=== PATIENT | female | born 1955 | race Caucasian/White ===

== ENCOUNTER → 2018-01-13 10:46 | Outpatient (CLI) | payer BC, SELFPAY ==
--- NOTE | 2018-01-13 10:50 | MM_ITS ---
MM Dig screening mamm BI w/CAD CAD Screening COMPARISON: Analog mammograms 06/06/2007 INDICATION: There is a history of breast cancer in the patient's paternal aunt. TECHNIQUE: Standard CC and MLO images were obtained. R2 CAD reviewed. FINDINGS: Moderate diffuse scattered fiber glandular densities are seen throughout both breast. There are mole markers on each breast. There are a few scattered benign-appearing calcifications right breast. There is a benign-appearing nodular density central portion left breast likely a small cyst or fibroadenoma. However it was not seen on the previous analog mammogram in 2006 and I would recommend a six-month follow-up left mammogram to evaluate for interval stability. There is no suspicious lesion and there are no suspicious microcalcifications. IMPRESSION: Fibrofatty parenchyma with benign-appearing nodular density left breast BI-RADS Category: 2 Benign Finding(s) RECOMMENDED FOLLOW-UP: 6M - 6 MONTH FOLLOW-UP (A letter has been sent to the patient regarding results of the study.)
== END ==
PROVIDERS: Family Provider Internal Medicine Adolescent Medicine; PCP Internal Medicine Adolescent Medicine; Visit Provider Nurse Practitioner Family
DX: Z12.31 Encounter for screening mammogram for malignant neoplasm of breast (principal)
CPT/HCPCS: 77067

== ENCOUNTER → 2019-01-03 09:17 | Outpatient (CLI) | payer BC, SELFPAY ==
[2019-01-03 10:59] LABS: Alanine Aminotransferase 33 U/L (12-78); Albumin Level 3.6 gm/dL (3.4-5.0); Albumin/Globulin Ratio 0.9 (1.1-1.8); Alkaline Phosphatase 83 U/L (46-116); Anion Gap 15.2 mEq/L (5-15); Aspartate Amino Transferase 21 U/L (15-37); Bilirubin,Total 0.5 mg/dL (0.2-1.0); Blood Urea Nitrogen 15 mg/dL (7-18); Calcium 9.3 mg/dL (8.5-10.1); Carbon Dioxide 27 mmol/L (21.0-32.0); Chloride 102 mmol/L (98-107); Chol/HDL Ratio 4.6 (1-3.5); Cholesterol 176 mg/dL (140-200); Creatinine,Serum 0.83 mg/dL (0.55-1.02); Estimated Glomerular Filt Rate 69 ml/min (>60); GFR (African American) 84 ML/MIN (>60); Glucose 222 mg/dL (74-106); HDL Cholesterol 38 mg/dL (29-89); LDL Cholesterol 113 mg/dL (0-130); Potassium 4.2 mmoL/L (3.5-5.1); Sodium 140 mmol/L (136-145); Total Protein,Serum 7.6 gm/dL (6.4-8.2); Triglycerides 126 mg/dL (30-200); VLDL Cholesterol 25 mg/dL (0-40)
== END ==
PROVIDERS: Visit Provider Internal Medicine Adolescent Medicine
DX: E11.9 Type 2 diabetes mellitus without complications (principal); E78.5 Hyperlipidemia, unspecified
CPT/HCPCS: 36415; 80053; 80061; 83036

== ENCOUNTER → 2019-03-18 12:33 | Outpatient (CLI) | payer BC, SELFPAY ==
--- NOTE | 2019-03-18 12:42 | XR_ITS ---
XR hand LT min 3V HISTORY: ITS.REASON: LT HAND LACERATION, INJURY ORDERING PHYSICIAN: Eitan Patel MD PATIENT AGE: 63 years COMPARISON: None FINDINGS: Metallic artifact is present along the mid shaft of the proximal phalanx of the fourth digit consistent with multiple rings. The patient was not able to remove them for the exam. There are severe osteoarthritic changes of the first metacarpal carpal joint with bony eburnation and mild lateral subluxation of the first metacarpal. No acute fracture or dislocation. IMPRESSION: 1. Osteoarthritis of the first metacarpal carpal joint with lateral subluxation of the first metacarpal and common bony eburnation 2. No acute fracture
== END ==
PROVIDERS: PCP Internal Medicine Adolescent Medicine; Visit Provider Internal Medicine Adolescent Medicine
DX: S61.412A Laceration without foreign body of left hand, initial encounter (principal)
CPT/HCPCS: 73130

== ENCOUNTER 2019-04-17 11:19 | Observation (INO) | payer BC, SELFPAY ==
[2019-04-17] VITALS (8 sets, daily range): BP systolic 109–151; BP diastolic 59–84; PULSE 65–86; RESP 13–20; TEMP 36.4–36.8; O2SAT 95–99; BMI 31.5; BMI 30.4
--- NOTE | 2019-04-17 11:35 | CT_ITS ---
CT head/brain wo con HISTORY: Syncope ITS.REASON: syncope ORDERING PHYSICIAN: Paulino Sandy MD PATIENT AGE: 63 years COMPARISON: None TECHNIQUE: Axial images obtained without contrast. Brain and bone windows reviewed. All CT scans at the facility use one or more dose reduction, viz: automated exposure control, ma/kV adjustment per patient size (including targeted exams where dose is matched to indication, i.e. head), or iterative reconstruction technique. FINDINGS: No midline shift, mass effect, intracranial hemorrhage, hydrocephalus, or extra-axial fluid collection is evident. There are mild intralesional changes of age with mild atrophy hypoattenuation periventricular region. The calvarium has an unremarkable appearance. No mastoid effusion. No sinus air-fluid levels.. IMPRESSION: No acute intracranial finding
--- NOTE | 2019-04-17 11:36 | XR_ITS ---
XR hip RT 2-3V w/pelvis HISTORY: Right hip pain following injury ITS.REASON: fall ORDERING PHYSICIAN: Paulino Sandy MD PATIENT AGE: 63 years COMPARISON: None FINDINGS: No fracture or dislocation is evident. Mild osteoarthritic changes are present involving the right hip. IMPRESSION: No acute finding. Mild osteoarthritis
--- NOTE | 2019-04-17 11:37 | XR_ITS ---
XR shoulder RT min 2V HISTORY: Posttraumatic pain ITS.REASON: fall ORDERING PHYSICIAN: Paulino Sandy MD PATIENT AGE: 63 years Comparison: None FINDINGS: No fracture or dislocation. There are mild osteoarthritic changes of the glenohumeral joint and acromioclavicular joint IMPRESSION: Mild osteoarthritis, no acute fracture
--- NOTE | 2019-04-17 11:38 | HMH.EDGENADL ---
ED Disposition Clinical Impression: Sepsis Qualifiers: Sepsis type: sepsis due to unspecified organism Qualified Code(s): A41.9 - Sepsis, unspecified organism Syncope Qualifiers: Syncope type: unspecified Qualified Code(s): R55 - Syncope and collapse Disposition: Admitted as Observation Condition on Discharge: Good Referrals: Eitan Patel MD [Primary Care Provider] - - Critical Care Critical Care Time: No Attestation: On 04/17/19, the high probability of a clinically significant, sudden or life threatening deterioration of the following system(s) required my full and direct attention, intervention and personal management. The time I documented below is in addition to time spent performing reported procedures but includes the following listed in this critical care notation. Medical Decision Making - Medical Records Medical records reviewed: Yes: I reviewed the patient's medical records. - Jhon Inquiry Pt receiving controlled substance: No Vital Signs: 04/17/19 11:37 04/17/19 12:01 04/17/19 15:00 Temperature 97.6 F Temperature Source Oral Pulse Rate [Left Radial] 77 76 86 Respiratory Rate 18 20 Blood Pressure [Right Arm] 119/73 120/70 118/78 Blood Pressure Mean [Right Arm] 88 86 91 Blood Pressure Source [Right Arm] Automatic Cuff Automatic Cuff Automatic Cuff Blood Pressure Position [Right Arm] Sitting Sitting Sitting 02 Sat by Pulse Oximetry 95 98 98 Oxygen Delivery Method Room Air Room Air Room Air - Lab Data Lab results reviewed: Yes: I reviewed the patient's lab results. Lab Results 04/17/19 11:35: WBC 26.9 H*, RBC 4.95, Hgb 14.8, Hct 46.1, MCV 93.1, MCH 29.8, MCHC 32.0, RDW 12.4, Plt Count 428 H, MPV 8.3, Neut % (Auto) 90.6 H, Lymph % (Auto) 4.1 L, [place] % (Auto) 3.9, Eos % (Auto) 1.3, Baso % (Auto) 0.1, Neut # (Auto) 24.2 H, Lymph # (Auto) 1.1, [place] # (Auto) 1.1 H, Eos # (Auto) 0.3, Baso # (Auto) 0.0, Total Counted 100, Neutrophils % (Manual) 85 H, Band Neutrophils % 2.0, Lymphocytes % (Manual) 7 L, Monocytes % (Manual) 6, Platelet Estimate Normal, RBC Morphology Normal 04/17/19 11:35: Sodium 138, Potassium 4.2, Chloride 100, Carbon Dioxide 21, Anion Gap 21.2 H, BUN 23 H, Creatinine 1.29 H, Estimated Creat Clear 69, Estimated GFR 42 L, Est GFR ( Amer) 50 L, Glucose 291 H, Calcium 9.5, Total Bilirubin 0.4, AST 33, ALT 45, Alkaline Phosphatase 88, Troponin I < 0.02, Total Protein 8.1, Albumin 3.6, Globulin 4.5 H, Albumin/Globulin Ratio 0.8 L, Lipase 160 04/17/19 13:10: Urine Color Yellow, Urine Appearance Clear, Urine pH 5.5, Ur Specific [place] >= 1.030, Urine Protein Trace, Urine Glucose (UA) 2+, Urine Ketones 1+, Urine Blood Negative, Urine Nitrate Negative, Urine Bilirubin Negative, Urine Urobilinogen 0.2, Ur Leukocyte Esterase Negative, Urine RBC 3-5, Urine WBC 3-5, Ur Squamous Epith Cells 5-10, Urine Bacteria 1+, Hyaline Casts 20-50, Urine Mucus 1+, Urine Yeast Occasional 04/17/19 13:45: Lactate 2.8 H Result diagrams: 04/17/19 11:35 04/17/19 11:35 Orders (Tests/Meds): ED MEDICATIONS Generic Name Dose Route Start Last Admin Trade Name Freq PRN Reason Stop Dose Admin Piperacillin Sod/Tazobactam 50 mls @ 100 mls/hr 04/17/19 13:15 04/17/19 14:44 Sod 3.375 gm/ Sodium Chloride IV 05/01/19 13:14 100 mls/hr Q8H JEAN Administration Protocol Sodium Chloride 1,000 mls @ 999 mls/hr 04/17/19 15:30 Sod Chlor 0.9% 1000ml Bag IV 04/17/19 16:30 .Q1H1M JEAN Discontinued Medications Generic Name Dose Route Start Last Admin Trade Name Freq PRN Reason Stop Dose Admin Sodium Chloride 1,000 mls @ 999 mls/hr 04/17/19 11:45 04/17/19 11:45 Sod Chlor 0.9% 1000ml Bag IV 04/17/19 12:45 999 mls/hr .Q1H1M JEAN Administration Ondansetron HCl 4 mg 04/17/19 11:37 04/17/19 11:45 Zofran 4mg/2ml Vial IV 04/17/19 11:38 4 mg ONCE ONE Administration ORDERS Category Date Time Status Chest XR AP view [XR chest AP] Stat Exams 04/17/19 15:17 Ordered Tro
--- NOTE | 2019-04-17 11:41 | ED_ITS ---
ED Disposition Clinical Impression: Sepsis Qualifiers: Sepsis type: sepsis due to unspecified organism Qualified Code(s): A41.9 - Sepsis, unspecified organism Syncope Qualifiers: Syncope type: unspecified Qualified Code(s): R55 - Syncope and collapse Disposition: Admitted as Observation Condition on Discharge: Good Referrals: Eitan Patel MD [Primary Care Provider] - - Critical Care Critical Care Time: No Attestation: On 04/17/19, the high probability of a clinically significant, sudden or life threatening deterioration of the following system(s) required my full and direct attention, intervention and personal management. The time I documented below is in addition to time spent performing reported procedures but includes the following listed in this critical care notation. Medical Decision Making - Medical Records Medical records reviewed: Yes: I reviewed the patient's medical records. - Jhon Inquiry Pt receiving controlled substance: No Vital Signs: 04/17/19 11:37 04/17/19 12:01 04/17/19 15:00 Temperature 97.6 F Temperature Source Oral Pulse Rate [Left Radial] 77 76 86 Respiratory Rate 18 20 Blood Pressure [Right Arm] 119/73 120/70 118/78 Blood Pressure Mean [Right Arm] 88 86 91 Blood Pressure Source [Right Arm] Automatic Cuff Automatic Cuff Automatic Cuff Blood Pressure Position [Right Arm] Sitting Sitting Sitting 02 Sat by Pulse Oximetry 95 98 98 Oxygen Delivery Method Room Air Room Air Room Air - Lab Data Lab results reviewed: Yes: I reviewed the patient's lab results. Lab Results 04/17/19 11:35: WBC 26.9 H*, RBC 4.95, Hgb 14.8, Hct 46.1, MCV 93.1, MCH 29.8, MCHC 32.0, RDW 12.4, Plt Count 428 H, MPV 8.3, Neut % (Auto) 90.6 H, Lymph % (Auto) 4.1 L, [place] % (Auto) 3.9, Eos % (Auto) 1.3, Baso % (Auto) 0.1, Neut # (Auto) 24.2 H, Lymph # (Auto) 1.1, [place] # (Auto) 1.1 H, Eos # (Auto) 0.3, Baso # (Auto) 0.0, Total Counted 100, Neutrophils % (Manual) 85 H, Band Neutrophils % 2.0, Lymphocytes % (Manual) 7 L, Monocytes % (Manual) 6, Platelet Estimate Normal, RBC Morphology Normal 04/17/19 11:35: Sodium 138, Potassium 4.2, Chloride 100, Carbon Dioxide 21, Anion Gap 21.2 H, BUN 23 H, Creatinine 1.29 H, Estimated Creat Clear 69, Estimated GFR 42 L, Est GFR ( Amer) 50 L, Glucose 291 H, Calcium 9.5, Total Bilirubin 0.4, AST 33, ALT 45, Alkaline Phosphatase 88, Troponin I < 0.02, Total Protein 8.1, Albumin 3.6, Globulin 4.5 H, Albumin/Globulin Ratio 0.8 L, Lipase 160 04/17/19 13:10: Urine Color Yellow, Urine Appearance Clear, Urine pH 5.5, Ur Specific [place] >= 1.030, Urine Protein Trace, Urine Glucose (UA) 2+, Urine Ketones 1+, Urine Blood Negative, Urine Nitrate Negative, Urine Bilirubin Negative, Urine Urobilinogen 0.2, Ur Leukocyte Esterase Negative, Urine RBC 3-5, Urine WBC 3-5, Ur Squamous Epith Cells 5-10, Urine Bacteria 1+, Hyaline Casts 20-50, Urine Mucus 1+, Urine Yeast Occasional 04/17/19 13:45: Lactate 2.8 H Result diagrams: 04/17/19 11:35 04/17/19 11:35 Orders (Tests/Meds): ED MEDICATIONS Generic Name Dose Route Start Last Admin Trade Name Freq PRN Reason Stop Dose Admin Piperacillin Sod/Tazobactam 50 mls @ 100 mls/hr 04/17/19 13:15 04/17/19 14:44 Sod 3.375 gm/ Sodium Chloride IV 05/01/19 13:14 100 mls/hr Q8H JEAN Administration
--- NOTE | 2019-04-17 11:43 | PC.NURSE ---
Ct scanner not available at this time, MD calvin
[2019-04-17 11:45] LABS: Basophils % 0.1 % (0.1-2.0); Eosinophils # 0.3 K/mm3 (0.0-0.4); Eosinophils % 1.3 % (0.1-12.0); Hematocrit 46.1 % (37.0-47.0); Hemoglobin 14.8 g/dL (12.2-16.2); Lymphocytes # 1.1 K/mm3 (0.7-4.5); Lymphocytes % 4.1 % (10-50); Mean Corpuscular Hemoglobin 29.8 pg (27.0-31.2); Mean Corpuscular Volume 93.1 fl (81-99); Mean Platelet Volume 8.3 fl (7.4-10.4); Monocytes # 1.1 K/mm3 (0.1-1.0); Monocytes % 3.9 % (1.7-9.3); Neutrophils # 24.2 K/mm3 (1.8-7.8); Neutrophils % 90.6 % (37.0-80.0); Platelet Count 428 K/mm3 (142-424); Red Blood Count 4.95 M/mm3 (4.20-5.40); Red Cell Distribution Width 12.4 % (11.5-17.5)
[2019-04-17 11:48] LABS: MANUAL DIFFERENTIAL MANUAL DIFFERENTIAL (MANUAL DIFF)
[2019-04-17 11:51] LABS: White Blood Count 26.9 K/mm3 (4.8-10.8)
[2019-04-17 12:02] LABS: Alanine Aminotransferase 45 U/L (12-78); Albumin Level 3.6 gm/dL (3.4-5.0); Albumin/Globulin Ratio 0.8 (1.1-1.8); Alkaline Phosphatase 88 U/L (46-116); Anion Gap 21.2 mEq/L (5-15); Aspartate Amino Transferase 33 U/L (15-37); Bilirubin,Total 0.4 mg/dL (0.2-1.0); Blood Urea Nitrogen 23 mg/dL (7-18); Calcium 9.5 mg/dL (8.5-10.1); Carbon Dioxide 21 mmol/L (21.0-32.0); Chloride 100 mmol/L (98-107); Creatinine Clearance Estimated 69 mL/min (50-200); Creatinine,Serum 1.29 mg/dL (0.55-1.02); Estimated Glomerular Filt Rate 42 ml/min (>60); GFR (African American) 50 ML/MIN (>60); Globulin 4.5 gm/dl (1.3-3.2); Glucose 291 mg/dL (74-106); Lipase 160 u/L (73-393); Potassium 4.2 mmoL/L (3.5-5.1); Sodium 138 mmol/L (136-145); Total Protein,Serum 8.1 gm/dL (6.4-8.2); Troponin I < 0.02 ng/ml (0.00-0.06)
[2019-04-17 12:15] LABS: Lymphocytes % 7 % (10-50); Monocytes % 6 % (2-9); Neutrophils % 85 % (42-76); Total Cells Counted 100
[2019-04-17 12:16] LABS: Platelet Estimate Normal; RBC Morphology Normal
[2019-04-17 13:15] LABS: Microscopic, Urine URINE MICROSCOPIC (MICROSCOPIC)
--- NOTE | 2019-04-17 13:16 | PC.NURSE ---
Pt to rad
[2019-04-17 13:17] LABS: Appearance,Urine CLEAR (Clear); Blood, Urine Negative (Negative); Color,Urine YELLOW (Yellow); Glucose,Urine (UA) 2+ (Negative); Ketones,Urine 1+ (Negative); Leukocyte Esterase,Urine Negative (Negative); Nitrate,Urine Negative (Negative); PH,Urine 5.5 (5.0-8.5); Protein,Urine TRACE (Negative); Specific Gravity, Urine >= 1.030 (1.005-1.030); Urobilinogen,Urine 0.2 EU/dl (0.2)
[2019-04-17 13:49] LABS: Bilirubin,Urine Negative (Negative)
[2019-04-17 13:50] LABS: Bacteria,Urine 1+ /lpf; Hyaline Casts,Urine 20-50 #/lpf (0)
--- NOTE | 2019-04-17 13:50 | CT_ITS ---
CT abdomen pelvis wo con CLINICAL INDICATION: Vomiting and abdominal pain ITS.REASON: vomiting ORDERING PHYSICIAN: Paulino Sandy MD PATIENT AGE: 63 years COMPARISON: 11/30/2015 TECHNIQUE: Axial images obtained with sagittal and coronal reformats. All CT scans at the facility use one or more dose reduction, viz: automated exposure control, ma/kV adjustment per patient size (including targeted exams where dose is matched to indication, i.e. head), or iterative reconstruction technique. PROCEDURE: Oral Contrast: None IV Contrast: None . FINDINGS: No acute finding in the lung bases. Scattered nodular opacities of both breasts which may be due to fibroglandular elements. Outpatient mammography is suggested. Fatty liver. Prior cholecystectomy. The spleen, pancreas, and adrenal glands are unremarkable. There are some small. Portal lymph nodes contain calcification. There are bilateral renal calculi measuring up to 3 mm in the upper pole on the right and 6 mm in the upper pole on the left. A 4 mm stone is present in the mid polar region on the left. There is mild stranding of perinephric renal fat on both sides.. Prior appendectomy. Diverticulosis of the descending and sigmoid colon no evidence of diverticulitis. No intestinal obstruction or free air. No pelvic mass abnormal fluid collection or focal inflammatory changes pelvis. No acute bony findings. IMPRESSION: No acute abdominal or pelvic findings. Bilateral nonobstructing renal calculi Sigmoid and descending colon diverticulosis with no evidence of diverticulitis
[2019-04-17 13:51] LABS: Mucus,Urine 1+ /lpf; Yeast,Urine Occasional /lpf
[2019-04-17 14:25] LABS: Lactic Acid 2.8 mmol/L (0.4-2.0)
--- NOTE | 2019-04-17 14:31 | PC.NURSE ---
pt return from radiology
--- NOTE | 2019-04-17 14:45 | PC.NURSE ---
pt just got back from CT pt had 2 CT S and lab went to there and got her blood cultures . ATB'S just now started
--- NOTE | 2019-04-17 15:17 | XR_ITS ---
XR chest portable HISTORY: Elevated white blood cell count, septic ITS.REASON: sepsis ORDERING PHYSICIAN: Paulino Sandy MD PATIENT AGE: 63 years COMPARISON: 08/28/2016 FINDINGS: The cardiomediastinal silhouette and pulmonary vascularity are within normal limits. The lungs are clear without infiltrates, suspicious nodules, or pleural effusions. No acute bony abnormalities. IMPRESSION: Negative chest, no acute finding
[2019-04-17 15:18] LABS: Troponin I < 0.02 ng/ml (0.00-0.06)
--- NOTE | 2019-04-17 17:34 | PC.NURSE ---
lab at bedside
[2019-04-17 17:39] LABS: Reflex Lactic Add Lactic Reflex
[2019-04-17 18:01] LABS: Lactic Acid Follow Up (RFLX 1) 1.8 (0.4-2.0)
--- NOTE | 2019-04-17 19:13 | PC.NURSE ---
report given to tala
[2019-04-17 20:21] LABS: POC Glucose,Bedside 250 (70-110)
[2019-04-17 22:04] LABS: Troponin I < 0.02 ng/ml (0.00-0.06)
[2019-04-18] VITALS: BP 115/59; PULSE 70; PULSE 80; RESP 18; TEMP 36.9; O2SAT 99
--- NOTE | 2019-04-18 03:09 | PC.NURSE ---
A&OX4. PT. ABD SOFT, NONTENDER WITH ACTIVE BOWEL SOUNDS IN ALL QUADRANTS. PT. ENCOURAGED TO REPORT ANY BM IN ORDER TO OBTAIN STOOL SAMPLE; PT. HAS NOT HAD A BM THUS FAR. PT. HAS NOT C/O PAIN, N/V/D, SOB, OR DIZZINESS. PT. AMBULATES INDEPENDENTLY WITH STANDBY ASSIST; GAIT AND BALANCE SATISFACTORY. NEW IV PLACED IN RFA; LAC IV D/C. IV PATENT AND INFUSING SHOWING NO S/S OF INFILTRATION. PT. CURRENTLY RESTING IN BED WITH EYES CLOSED. VSS. WILL CONTINUE TO MONITOR.
[2019-04-18 03:43] LABS: Basophils % 0.2 % (0.1-2.0); Eosinophils # 0.1 K/mm3 (0.0-0.4); Eosinophils % 0.6 % (0.1-12.0); Hematocrit 36.3 % (37.0-47.0); Lymphocytes # 2.7 K/mm3 (0.7-4.5); Mean Corpuscular HGB Conc 32.9 g/dL (31.8-35.4); Mean Corpuscular Hemoglobin 29.8 pg (27.0-31.2); Mean Corpuscular Volume 90.7 fl (81-99); Mean Platelet Volume 8.3 fl (7.4-10.4); Monocytes # 0.7 K/mm3 (0.1-1.0); Monocytes % 4.8 % (1.7-9.3); Neutrophils # 10.2 K/mm3 (1.8-7.8); Neutrophils % 74.4 % (37.0-80.0); Platelet Count 297 K/mm3 (142-424); Red Blood Count 4.01 M/mm3 (4.20-5.40); Red Cell Distribution Width 12.6 % (11.5-17.5); White Blood Count 13.6 K/mm3 (4.8-10.8)
[2019-04-18 03:58] LABS: Blood Urea Nitrogen 18 mg/dL (7-18); Carbon Dioxide 26 mmol/L (21.0-32.0); Chloride 106 mmol/L (98-107); Creatinine Clearance Estimated 86 mL/min (50-200); Creatinine,Serum 0.89 mg/dL (0.55-1.02); Estimated Glomerular Filt Rate 64 ml/min (>60); GFR (African American) 77 ML/MIN (>60); Sodium 139 mmol/L (136-145); Troponin I < 0.02 ng/ml (0.00-0.06)
[2019-04-18 03:59] LABS: Calcium 8.5 mg/dL (8.5-10.1); Glucose 183 mg/dL (74-106)
[2019-04-18 04:00] VITALS: BP 133/53; PULSE 60; PULSE 63; RESP 18; TEMP 36.6; O2SAT 98
[2019-04-18 04:00] LABS: Hemoglobin 11.9 g/dL (12.2-16.2)
[2019-04-18 05:23] VITALS: BMI 29.9
[2019-04-18 05:58] LABS: POC Glucose,Bedside 161 (70-110)
--- NOTE | 2019-04-18 07:18 | HMH.HPDC ---
General - General Admission date:: 04/17/19 Discharge date: 04/18/19 *Admission Date: 04/17/19 *Chief complaint: Syncope/leukocytosis *History of present illness: 63-year-old white female with well-controlled type 2 diabetes who was at her home yesterday morning and while fixing breakfast began to have the onset of significant watery diarrhea several times. She went back to the kitchen and had a syncopal episode. She called a friend who summoned EMS and brought her to the emergency department where she was found to have essentially normal exam but noted to have mild urinary tract infection and significant leukocytosis. Admitted to hospital for IV antibiotics, cultures and further diagnostic testing. [facility] History I have reviewed the patient's past medical history: Yes Medical History: Reports:: Diabetes Mellitus Type 2 Denies:: Cancer, Diabetes Mellitus Type 1, MRSA *Have you ever received a pneumonia vaccine?: Yes *Have you received a flu vaccine this season?: Yes Laterality Cases: Bilateral: Arthroscopy Knee Other Surgeries: Yes: Appendectomy, Cholecystectomy, , Hernia Repair Amputation: No Fractures: No - *Social History Educational Level: Completed College Smoking Status: Never smoker Alcohol Intake: never *Occupational Status:: retired Housing: house *Travel in the last 8 weeks: None - Psychiatric History Expresses thoughts of harming self/others: None Suicide Plan Description: No Plan Family Hx:: Heart Attack, Hypertension Review of Systems - Constitutional Reports fatigue, Reports fever(s), Denies anorexia, Denies body ache(s) - Eyes Denies blind spots, Denies blurry vision - ENT Denies abnormal hearing - *Cardiovascular Denies chest pain, Denies chest pain at rest, Denies excessive sweating, Denies shortness of breath - *Respiratory Denies change in phlegm color, Denies chest congestion - *Gastrointestinal Reports abdominal pain, Reports change in bowel habits - *Genitourinary Denies abnormal periods, Denies abnormal vaginal bleeding - Integumentary/Breasts Denies acne - *Neurologic Reports dizziness, Denies abnormal speech Exam Vital signs and Labs for Last 24 Hours: Temp Pulse Resp BP Pulse Ox 97.8 F 63 18 133/53 L 98 04/18/19 04:00 04/18/19 04:00 04/18/19 04:00 04/18/19 04:00 04/18/19 04:00 Laboratory Results - last 24 hr 04/17/19 11:35: WBC 26.9 H*, RBC 4.95, Hgb 14.8, Hct 46.1, MCV 93.1, MCH 29.8, MCHC 32.0, RDW 12.4, Plt Count 428 H, MPV 8.3, Neut % (Auto) 90.6 H, Lymph % (Auto) 4.1 L, [place] % (Auto) 3.9, Eos % (Auto) 1.3, Baso % (Auto) 0.1, Neut # (Auto) 24.2 H, Lymph # (Auto) 1.1, [place] # (Auto) 1.1 H, Eos # (Auto) 0.3, Baso # (Auto) 0.0, Total Counted 100, Neutrophils % (Manual) 85 H, Band Neutrophils % 2.0, Lymphocytes % (Manual) 7 L, Monocytes % (Manual) 6, Platelet Estimate Normal, RBC Morphology Normal 04/17/19 11:35: Sodium 138, Potassium 4.2, Chloride 100, Carbon Dioxide 21, Anion Gap 21.2 H, BUN 23 H, Creatinine 1.29 H, Estimated Creat Clear 69, Estimated GFR 42 L, Est GFR ( Amer) 50 L, Glucose 291 H, Calcium 9.5, Total Bilirubin 0.4, AST 33, ALT 45, Alkaline Phosphatase 88, Troponin I < 0.02, Total Protein 8.1, Albumin 3.6, Globulin 4.5 H, Albumin/Globulin Ratio 0.8 L, Lipase 160 04/17/19 13:10: Urine Color Yellow, Urine Appearance Clear, Urine pH 5.5, Ur Specific [place] >= 1.030, Urine Protein Trace, Urine Glucose (UA) 2+, Urine Ketones 1+, Urine Blood Negative, Urine Nitrate Negative, Urine Bilirubin Negative, Urine Urobilinogen 0.2, Ur Leukocyte Esterase Negative, Urine RBC 3-5, Urine WBC 3-5, Ur Squamous Epith Cells 5-10, Urine Bacteria 1+, Hyaline Casts 20-50, Urine Mucus 1+, Urine Yeast Occasional 04/17/19 13:45: Lactate 2.8 H 04/17/19 14:43: Troponin I < 0.02 04/17/19 17:30: Lactate 1.8 04/17/19 20:13: POC Glucose 250 H 04/17/19 21:38: Troponin I < 0.02 04/18/19 03:35: Sodium 139, Potassium 4.0, Chloride 106, Carbon Dioxide 26 D, Anion Gap
--- NOTE | 2019-04-18 07:22 | P.HPDS_ITS ---
General - General Admission date:: 04/17/19 Discharge date: 04/18/19 *Admission Date: 04/17/19 *Chief complaint: Syncope/leukocytosis *History of present illness: 63-year-old white female with well-controlled type 2 diabetes who was at her home yesterday morning and while fixing breakfast began to have the onset of significant watery diarrhea several times. She went back to the kitchen and had a syncopal episode. She called a friend who summoned EMS and brought her to the emergency department where she was found to have essentially normal exam but noted to have mild urinary tract infection and significant leukocytosis. Admitted to hospital for IV antibiotics, cultures and further diagnostic testing. [facility] History I have reviewed the patient's past medical history: Yes Medical History: Reports:: Diabetes Mellitus Type 2 Denies:: Cancer, Diabetes Mellitus Type 1, MRSA *Have you ever received a pneumonia vaccine?: Yes *Have you received a flu vaccine this season?: Yes Laterality Cases: Bilateral: Arthroscopy Knee Other Surgeries: Yes: Appendectomy, Cholecystectomy, , Hernia Repair Amputation: No Fractures: No - *Social History Educational Level: Completed College Smoking Status: Never smoker Alcohol Intake: never *Occupational Status:: retired Housing: house *Travel in the last 8 weeks: None - Psychiatric History Expresses thoughts of harming self/others: None Suicide Plan Description: No Plan Family Hx:: Heart Attack, Hypertension Review of Systems - Constitutional Reports fatigue, Reports fever(s), Denies anorexia, Denies body ache(s) - Eyes Denies blind spots, Denies blurry vision - ENT Denies abnormal hearing - *Cardiovascular Denies chest pain, Denies chest pain at rest, Denies excessive sweating, Denies shortness of breath - *Respiratory Denies change in phlegm color, Denies chest congestion - *Gastrointestinal Reports abdominal pain, Reports change in bowel habits - *Genitourinary Denies abnormal periods, Denies abnormal vaginal bleeding - Integumentary/Breasts Denies acne - *Neurologic Reports dizziness, Denies abnormal speech Exam Vital signs and Labs for Last 24 Hours: Temp Pulse Resp BP Pulse Ox 97.8 F 63 18 133/53 L 98 04/18/19 04:00 04/18/19 04:00 04/18/19 04:00 04/18/19 04:00 04/18/19 04:00 Laboratory Results - last 24 hr 04/17/19 11:35: WBC 26.9 H*, RBC 4.95, Hgb 14.8, Hct 46.1, MCV 93.1, MCH 29.8, MCHC 32.0, RDW 12.4, Plt Count 428 H, MPV 8.3, Neut % (Auto) 90.6 H, Lymph % (Auto) 4.1 L, [place] % (Auto) 3.9, Eos % (Auto) 1.3, Baso % (Auto) 0.1, Neut # (Auto) 24.2 H, Lymph # (Auto) 1.1, [place] # (Auto) 1.1 H, Eos # (Auto) 0.3, Baso # (Auto) 0.0, Total Counted 100, Neutrophils % (Manual) 85 H, Band Neutrophils % 2.0, Lymphocytes % (Manual) 7 L, Monocytes % (Manual) 6, Platelet Estimate Normal, RBC Morphology Normal 04/17/19 11:35: Sodium 138, Potassium 4.2, Chloride 100, Carbon Dioxide 21, Anion Gap 21.2 H, BUN 23 H, Creatinine 1.29 H, Estimated Creat Clear 69, Estimated GFR 42 L, Est GFR ( Amer) 50 L, Glucose 291 H, Calcium 9.5, Total Bilirubin 0.4, AST 33, ALT 45, Alkaline Phosphatase 88, Troponin I < 0.02, Total Protein 8.1, Albumin 3.6, Globulin 4.5 H, Albumin/Globulin Ratio 0.8 L, Lipase 160 04/17/19 13:10: Urine Color Yellow, Urine Appearance Clear, Urine pH 5.5, Ur Specific [place] >= 1.030, Urine Protein Trace, Urine Glucose (UA) 2+, Urine Ketones 1+, Urine Blood Negative, Ur
[2019-04-18 07:43] VITALS: BP 155/95; PULSE 70; RESP 16; TEMP 36.5; O2SAT 96
--- NOTE | 2019-04-18 09:05 | HMH.PHAVTE ---
[facility] Pharmacy VTE Monitoring - Patient Demographics Admission date: 04/17/19 Report Date: 04/18/19 Time: 09:05 Allergies/Adverse Reactions: Patient Allergies No Known Drug Allergies [NO KNOWN DRUG ALLERGIES] Allergy (Unknown, Verified 03/25/19 09:21) Height: 1.78 m Weight: 94.489 kg Patient Problems: Current Active Problems (Updated 04/18/19 @ 07:22 by Eitan Patel MD) Sepsis (Acute) Syncope (Acute) Leukocytosis (Acute) UTI (urinary tract infection) (Acute) - VTE Risk Labs: VTE Related Lab Results Hgb 11.9 g/dL (12.2-16.2) L D 04/18/19 03:35 Hct 36.3 % (37.0-47.0) L 04/18/19 03:35 Plt Count 297 K/mm3 (142-424) D 04/18/19 03:35 BUN 18 mg/dL (7-18) 04/18/19 03:35 Creatinine 0.89 mg/dL (0.55-1.02) D 04/18/19 03:35 Estimated Creat Clear 86 mL/min (50-200) 04/18/19 03:35 VTE Score: 2 - Prophylaxis VTE Prophylaxis Ordered?: Yes Types of VTE Prophylaxis: TEDS Knee High Location of Applied Device: Bilateral Lower Extremeties
== END 2019-04-18 09:35 | disposition home or self-care (01) ==
LOC: ER 15:26 → 2ND 17:16
PROVIDERS: Admitting Provider Internal Medicine Adolescent Medicine; Emergency Provider Emergency Medicine Emergency Medical Services; PCP Internal Medicine Adolescent Medicine; Visit Provider Internal Medicine Adolescent Medicine
DX: D72.829 Elevated white blood cell count, unspecified (principal); N39.0 Urinary tract infection, site not specified; R55 Syncope and collapse; E11.9 Type 2 diabetes mellitus without complications
CPT/HCPCS: 36415; 70450; 71045; 73030; 73502; 74176; 80048; 80053; 81001; 82962; 83605; 83690; 84484; 85007; 85025; 87040; 87086; 93005; 96365; 96366; 96367; 96375; 99285; G0378; J2405; J2543

== ENCOUNTER → 2019-04-20 16:43 | Outpatient (CLI) | payer BC, SELFPAY ==
[2019-04-20 18:10] LABS: Hemoglobin A1C 8.3 % (0.0-7.0)
[2019-04-20 20:11] LABS: Alanine Aminotransferase 36 U/L (12-78); Albumin Level 3.4 gm/dL (3.4-5.0); Albumin/Globulin Ratio 0.9 (1.1-1.8); Alkaline Phosphatase 77 U/L (46-116); Anion Gap 15.4 mEq/L (5-15); Aspartate Amino Transferase 18 U/L (15-37); Bilirubin,Total 0.2 mg/dL (0.2-1.0); Blood Urea Nitrogen 14 mg/dL (7-18); Carbon Dioxide 27 mmol/L (21.0-32.0); Chloride 104 mmol/L (98-107); Chol/HDL Ratio 4.5 (1-3.5); Cholesterol 154 mg/dL (140-200); Creatinine,Serum 1.06 mg/dL (0.55-1.02); Estimated Glomerular Filt Rate 52 ml/min (>60); GFR (African American) 63 ML/MIN (>60); Globulin 3.8 gm/dl (1.3-3.2); Glucose 218 mg/dL (74-106); HDL Cholesterol 34 mg/dL (29-89); LDL Cholesterol 92 mg/dL (0-130); Potassium 4.4 mmoL/L (3.5-5.1); Sodium 142 mmol/L (136-145); Total Protein,Serum 7.2 gm/dL (6.4-8.2); Triglycerides 139 mg/dL (30-200); VLDL Cholesterol 28 mg/dL (0-40)
[2019-04-20 20:21] LABS: Calcium 9.4 mg/dL (8.5-10.1)
== END ==
PROVIDERS: Visit Provider Internal Medicine Adolescent Medicine
DX: E11.9 Type 2 diabetes mellitus without complications (principal); Z79.84 Long term (current) use of oral hypoglycemic drugs; E78.5 Hyperlipidemia, unspecified
CPT/HCPCS: 36415; 80053; 80061; 83036

== ENCOUNTER → 2019-06-26 09:31 | Outpatient (CLI) | payer MEDICARE, BC, SELFPAY ==
[2019-06-26 11:07] LABS: Alanine Aminotransferase 29 U/L (12-78); Albumin Level 3.4 gm/dL (3.4-5.0); Albumin/Globulin Ratio 0.9 (1.1-1.8); Alkaline Phosphatase 68 U/L (46-116); Anion Gap 17.7 mEq/L (5-15); Aspartate Amino Transferase 14 U/L (15-37); Bilirubin,Total 0.3 mg/dL (0.2-1.0); Blood Urea Nitrogen 12 mg/dL (7-18); Calcium 9.3 mg/dL (8.5-10.1); Carbon Dioxide 24 mmol/L (21.0-32.0); Chloride 104 mmol/L (98-107); Creatinine,Serum 0.83 mg/dL (0.55-1.02); Estimated Glomerular Filt Rate 69 ml/min (>60); GFR (African American) 84 ML/MIN (>60); Globulin 3.7 gm/dl (1.3-3.2); Glucose 171 mg/dL (74-106); Hemoglobin A1C 7.1 % (0.0-7.0); Potassium 3.7 mmoL/L (3.5-5.1); Sodium 142 mmol/L (136-145); Total Protein,Serum 7.1 gm/dL (6.4-8.2)
== END ==
PROVIDERS: Visit Provider Internal Medicine Adolescent Medicine
DX: E11.9 Type 2 diabetes mellitus without complications (principal); Z79.4 Long term (current) use of insulin
CPT/HCPCS: 36415; 80053; 83036

== ENCOUNTER → 2019-07-03 09:07 | Outpatient (CLI) | payer MEDICARE, BC, SELFPAY ==
--- NOTE | 2019-07-03 09:11 | XR_ITS ---
PROCEDURE: XR DEXA AXIAL SKELETON CLINICAL INDICATION: MENOPAUSAL SCREENING COMPARISON: No exams were available for comparison FINDINGS: The L1-L4 density has a T-score of -1.2 consistent with osteopenia. The lowest density within the hips is in the right femoral neck at 0.706 grams/centimeters sq with a T-score of -2.4. IMPRESSION: This patient is considered osteopenic according to the World Health Organization criteria. Bone density is between 10 and 25 percent below young normal . Fracture risk is moderate. Treatment is advised. Based on these results of follow-up exam is recommended in 2 years Dictated by: Juan Carlos Caballero MD 07/03/2019 10:42 Signed by: <Electronically signed by Juan Carlos Caballero MD in [place]> 07/03/2019 10:42
== END ==
PROVIDERS: PCP Internal Medicine Adolescent Medicine; Visit Provider Internal Medicine Adolescent Medicine
DX: Z13.820 Encounter for screening for osteoporosis (principal); Z78.0 Asymptomatic menopausal state
CPT/HCPCS: 77080

== ENCOUNTER → 2019-10-29 09:47 | Outpatient (CLI) | payer MEDICARE, BC, SELFPAY ==
[2019-10-29 10:12] LABS: Basophils % 0.3 % (0.1-2.0); Eosinophils # 0.1 K/mm3 (0.0-0.4); Eosinophils % 0.7 % (0.1-12.0); Hematocrit 47.1 % (37.0-47.0); Hemoglobin 14.3 g/dL (12.2-16.2); Lymphocytes # 2.2 K/mm3 (0.7-4.5); Lymphocytes % 23.9 % (10-50); Mean Corpuscular HGB Conc 30.5 g/dL (31.8-35.4); Mean Corpuscular Hemoglobin 29.8 pg (27.0-31.2); Mean Corpuscular Volume 97.9 fl (81-99); Mean Platelet Volume 8.2 fl (7.4-10.4); Monocytes # 0.3 K/mm3 (0.1-1.0); Monocytes % 3.7 % (1.7-9.3); Neutrophils # 6.6 K/mm3 (1.8-7.8); Neutrophils % 71.3 % (37.0-80.0); Platelet Count 362 K/mm3 (142-424); Red Blood Count 4.81 M/mm3 (4.20-5.40); Red Cell Distribution Width 12.7 % (11.5-17.5); White Blood Count 9.3 K/mm3 (4.8-10.8)
[2019-10-29 10:45] LABS: Hemoglobin A1C 7.5 % (0.0-7.0)
[2019-10-29 11:30] LABS: Alanine Aminotransferase 27 U/L (12-78); Albumin Level 3.5 gm/dL (3.4-5.0); Albumin/Globulin Ratio 0.9 (1.1-1.8); Alkaline Phosphatase 93 U/L (46-116); Anion Gap 14.9 mEq/L (5-15); Aspartate Amino Transferase 14 U/L (15-37); Bilirubin,Total 0.5 mg/dL (0.2-1.0); Blood Urea Nitrogen 13 mg/dL (7-18); Calcium 9.3 mg/dL (8.5-10.1); Carbon Dioxide 26 mmol/L (21.0-32.0); Chloride 103 mmol/L (98-107); Chol/HDL Ratio 4.7 (1-3.5); Cholesterol 174 mg/dL (140-200); Estimated Glomerular Filt Rate 63 ml/min (>60); GFR (African American) 76 ML/MIN (>60); Glucose 196 mg/dL (74-106); HDL Cholesterol 37 mg/dL (29-89); LDL Cholesterol 116 mg/dL (0-130); Potassium 3.9 mmoL/L (3.5-5.1); Sodium 140 mmol/L (136-145); Total Protein,Serum 7.5 gm/dL (6.4-8.2); Triglycerides 106 mg/dL (30-200); VLDL Cholesterol 21 mg/dL (0-40)
== END ==
PROVIDERS: Visit Provider Internal Medicine Adolescent Medicine
DX: E11.9 Type 2 diabetes mellitus without complications (principal); Z79.84 Long term (current) use of oral hypoglycemic drugs
CPT/HCPCS: 36415; 80053; 80061; 83036; 85025

== ENCOUNTER → 2019-12-18 10:07 | Outpatient (CLI) | payer MEDICARE, BC, SELFPAY ==
[2019-12-18 10:29] LABS: Basophils # 0.1 K/mm3 (0-0.2); Basophils % 0.4 % (0.1-2.0); Eosinophils # 0.1 K/mm3 (0.0-0.4); Eosinophils % 0.8 % (0.1-12.0); Lymphocytes # 1.7 K/mm3 (0.7-4.5); Lymphocytes % 10.9 % (10-50); Mean Corpuscular HGB Conc 30.4 g/dL (31.8-35.4); Mean Corpuscular Hemoglobin 29.3 pg (27.0-31.2); Mean Corpuscular Volume 96.7 fl (81-99); Mean Platelet Volume 8.5 fl (7.4-10.4); Monocytes # 0.6 K/mm3 (0.1-1.0); Monocytes % 3.5 % (1.7-9.3); Neutrophils # 13.1 K/mm3 (1.8-7.8); Neutrophils % 84.4 % (37.0-80.0); Platelet Count 362 K/mm3 (142-424); Red Blood Count 4.76 M/mm3 (4.20-5.40); Red Cell Distribution Width 12.9 % (11.5-17.5); White Blood Count 15.6 K/mm3 (4.8-10.8)
[2019-12-18 10:31] LABS: MANUAL DIFFERENTIAL MANUAL DIFFERENTIAL (MANUAL DIFF)
[2019-12-18 11:23] LABS: Lymphocytes % 16 % (10-50); Monocytes % 8 % (2-9); Neutrophils % 76 % (42-76); Platelet Estimate Normal; RBC Morphology Normal; Total Cells Counted 100
[2019-12-18 11:38] LABS: Alanine Aminotransferase 27 U/L (12-78); Albumin Level 3.5 gm/dL (3.4-5.0); Albumin/Globulin Ratio 0.9 (1.1-1.8); Alkaline Phosphatase 97 U/L (46-116); Anion Gap 14.4 mEq/L (5-15); Aspartate Amino Transferase 19 U/L (15-37); Bilirubin,Total 0.6 mg/dL (0.2-1.0); Blood Urea Nitrogen 12 mg/dL (7-18); Calcium 9.3 mg/dL (8.5-10.1); Carbon Dioxide 28 mmol/L (21.0-32.0); Chloride 103 mmol/L (98-107); Creatinine,Serum 0.93 mg/dL (0.55-1.02); Estimated Glomerular Filt Rate 61 ml/min (>60); GFR (African American) 73 ML/MIN (>60); Globulin 3.7 gm/dl (1.3-3.2); Glucose 233 mg/dL (74-106); Potassium 3.4 mmoL/L (3.5-5.1); Sodium 142 mmol/L (136-145); Total Protein,Serum 7.2 gm/dL (6.4-8.2)
[2019-12-18 11:49] LABS: Erythrocyte Sedimentation Rate 9 mm/hr (0-30)
== END ==
PROVIDERS: Visit Provider Internal Medicine Adolescent Medicine
DX: G43.109 Migraine with aura, not intractable, without status migrainosus (principal)
CPT/HCPCS: 36415; 80053; 85007; 85025; 85651

== ENCOUNTER 2019-12-22 07:46 | Outpatient (RCR) | payer MEDICARE, BC, SELFPAY | END 2019-12-22 07:55 | disposition home or self-care (01) | LOC: PT 07:46 | PROVIDERS: PCP Internal Medicine Adolescent Medicine; Visit Provider Internal Medicine Adolescent Medicine | DX: M54.41 Lumbago with sciatica, right side (principal) | CPT/HCPCS: 97110; 97163 ==

== ENCOUNTER → 2019-12-22 09:46 | Outpatient (CLI) | payer MEDICARE, BC, SELFPAY ==
--- NOTE | 2019-12-22 09:48 | MR_ITS ---
PROCEDURE: MR HEAD/BRAIN WO CON CLINICAL INDICATION: MIGRAINE AURA WITHOUT HEADACHE COMPARISON: No exams were available for comparison TECHNIQUE: Routine multiplanar multi echo sequences are performed without gadolinium enhancement. FINDINGS: No midline shift, mass effect, intracranial hemorrhage, hydrocephalus, or acute infarction is evident. There are numerous periventricular and subcortical T2 white matter hyperintensities. The hippocampal gyri are unremarkable in the temporal horns are symmetric. The cerebellopontine angle, cerebellum, and brainstem are unremarkable. The pituitary, optic chiasm, corpus callosum, and craniocervical junction have an unremarkable appearance. No mastoid effusion or sinus air-fluid level. IMPRESSION: 1. No acute intracranial findings. 2. Numerous scattered periventricular and subcortical T2 white matter hyperintensities. Differential diagnosis would include ischemic gliotic foci from microvascular disease or migraine headache. Demyelinating process felt to be less likely based on imaging characteristics but not completely excluded. Dictated by: Juan Carlos Caballero MD 12/23/2019 13:35 Electronically signed by Juan Carlos Caballero MD in [place] 12/23/2019 13:35
== END ==
PROVIDERS: PCP Internal Medicine Adolescent Medicine; Visit Provider Internal Medicine Adolescent Medicine
DX: G43.109 Migraine with aura, not intractable, without status migrainosus (principal)
CPT/HCPCS: 70551

== ENCOUNTER → 2020-07-26 10:28 | Outpatient (CLI) | payer MEDICARE, BC, SELFPAY ==
[2020-07-26 11:58] LABS: Chloride 105 mmol/L (98-107)
[2020-07-26 11:59] LABS: Potassium 4.2 mmoL/L (3.5-5.1); Sodium 141 mmol/L (136-145)
[2020-07-26 12:01] LABS: Alanine Aminotransferase 17 U/L (12-78); Albumin Level 3.9 g/dl (3.5-5.0); Albumin/Globulin Ratio 1.2 (1.1-1.8); Alkaline Phosphatase 85 U/L (38-126); Anion Gap 14.2 mEq/L (5-15); Aspartate Amino Transferase 21 U/L (14-36); Bilirubin,Total 0.4 mg/dl (0.2-1.3); Blood Urea Nitrogen 16 mg/dl (7-17); Carbon Dioxide 26 mmol/L (22.0-30.0); Estimated Glomerular Filt Rate 84 ml/min (>60); GFR (African American) 101 ML/MIN (>60); Globulin 3.2 g/dL (1.3-3.2); Total Protein,Serum 7.1 g/dl (6.3-8.2)
[2020-07-26 12:02] LABS: Calcium 9.8 mg/dl (8.4-10.2); Chol/HDL Ratio 2.2 (1-3.5); Cholesterol 98 mg/dl (140-200); Glucose 203 mg/dl (74-100); HDL Cholesterol 45 mg/dl (40-60); Triglycerides 85 mg/dl (30-150); VLDL Cholesterol 17 mg/dL (0-40)
[2020-07-26 12:13] LABS: Direct LDL Cholesterol 43.17 mg/dL (100-129)
[2020-07-27 14:22] LABS: Hemoglobin A1C 8.9 % (4.0-6.0)
[2020-07-27 14:46] LABS: Thyroid Stimulating Hormone 0.92 uIU/mL (0.465-4.68)
[2020-07-27 15:05] LABS: Vitamin B12 230 pg/mL (239-931)
[2020-07-27 15:23] LABS: 25-OH Vitamin D, Total 34.1 ng/mL (30-100)
== END ==
PROVIDERS: Visit Provider Internal Medicine Adolescent Medicine
DX: E11.9 Type 2 diabetes mellitus without complications (principal); E78.5 Hyperlipidemia, unspecified; G60.9 Hereditary and idiopathic neuropathy, unspecified; E55.9 Vitamin D deficiency, unspecified; Z79.84 Long term (current) use of oral hypoglycemic drugs
CPT/HCPCS: 36415; 80053; 80061; 82306; 82607; 83036; 84443

== ENCOUNTER 2020-11-26 08:58 | Emergency (ER) | payer MEDICARE, BC, SELFPAY ==
[2020-11-26 09:10] VITALS: BP 139/81; PULSE 87; RESP 18; TEMP 36.9; O2SAT 98; BMI 29.9
--- NOTE | 2020-11-26 09:32 | HMH.EDUTC ---
[facility] [place] Clinical Impression: Otitis Qualifiers: Laterality: right Qualified Code(s): H66.91 - Otitis media, unspecified, right ear Disposition: Home, Self-Care Condition on Discharge: Good Instructions: Ear Infections (Alternative Therapy), Middle Ear Infections (Alternative Therapy), Amoxicillin Additional Instructions: Take medication as prescribed *FOllow up with Family Doctor if no improvement or any worsening of symptoms Return if needed Straight to ER if any life threatening symptoms Prescriptions: Amoxicillin [Amoxicillin 500mg Cap] 500 mg PO TID #30 cap Transmission Status: Pending to Clinic Pharmacy [facility] Referrals: Eitan Patel MD [Primary Care Provider] - As needed Time of Disposition: 09:37 Medical Decision Making - Jhon Inquiry Pt receiving controlled substance: No Jhon was queried for this patient: No Vital Signs: 11/26/20 09:10 Temperature 98.4 F Temperature Source Oral Pulse Rate [Right Brachial] 87 Respiratory Rate 18 Blood Pressure [Right Arm] 139/81 Blood Pressure Mean [Right Arm] 100 Blood Pressure Source [Right Arm] Automatic Cuff Blood Pressure Position [Right Arm] Sitting 02 Sat by Pulse Oximetry 98 Oxygen Delivery Method Room Air [facility] [place] HPI - General Stated complaint: R ear ache Time Seen by Provider: 11/26/20 09:32 Mode of Arrival: Ambulatory Source of Information: Patient Limitations: No Limitations Description of Symptoms (Recalled from Triage Doc. by RN): PATIENT C/O RIGHT EARACHE X 4-5 DAYS HEENT Symptoms (Recalled from RN notes): Yes Resp Symptoms (Recalled from RN notes): No Skin Symptoms (Recalled from RN notes): No MS Symptoms (Recalled from RN notes): No Functional Status (Recalled from RN notes): WNL - History of Present Illness Provider Complaint: Patient states that she has been having pain in her right ear for about 4-5 days that has continued to get worse State that today she woke up and her ear was still hurting so she came in to get it checked - Related Data Home Medications Medication Instructions Recorded Confirmed Atorvastatin Calcium [Lipitor 40mg 40 mg PO HS 11/26/20 11/26/20 Tab] Glimepiride [Amaryl 2mg tablet] 2 mg PO DAILY 11/26/20 11/26/20 Metformin HCl [Metformin 1000mg 1,000 mg PO BID 11/26/20 11/26/20 Tablets] Verapamil HCl [Verapamil ER] 240 mg PO DAILY 11/26/20 11/26/20 trandolapriL [Trandolapril] 4 mg PO DAILY 11/26/20 11/26/20 Previous Rx's Medication Instructions Recorded Amoxicillin [Amoxicillin 500mg 500 mg PO TID #30 cap 11/26/20 Cap] Allergies Allergy/AdvReac Type Severity Reaction Status Date / Time No Known Allergies Allergy Verified 11/26/20 09:27 - Worker's Comp Is this a Worker's Comp case?: No [facility] [place] History - Hepatitis A Screen Drug use history?: No High risk sexual behaviors?: No History of sexually transmitted infection?: No Currently employed?: No Childcare worker?: No Do you have indoor plumbing?: Yes Do you have electricity?: Yes Attestation statement:: This patient has been screened for Hepatitis A risk factors. I have reviewed the patient's past medical history: Yes Medical History: Reports:: Diabetes Mellitus Type 2 Denies:: Cancer, Diabetes Mellitus Type 1, MRSA Laterality Cases: Bilateral: Arthroscopy Knee, Carpal Tunnel Release Other Surgeries: Yes: Appendectomy, Cholecystectomy, , Hernia Repair Amputation: No Fractures: No - Social History Smoking Status: Never smoker Alcohol Intake: never Occupational Status: other Housing: house Family Hx:: Heart Attack, Hypertension ROS Obtained: Yes All systems reviewed & no additional complaints, Yes Systems reviewed as appropriate & no additional complaints - Constitutional Constitutional: Reports system reviewed and no additional complaints, except as docu - ENT Ears, Nose, Mouth, and Throat: Reports system reviewed and no additional complaints, except as docu, Reports otalgia Phys
[2020-11-26 09:43] VITALS: BP 139/81; PULSE 87; RESP 18; TEMP 36.9; O2SAT 98
== END 2020-11-26 09:45 | disposition home or self-care (01) ==
PROVIDERS: Emergency Provider Nurse Practitioner; PCP Internal Medicine Adolescent Medicine
DX: H66.91 Otitis media, unspecified, right ear (principal); E11.9 Type 2 diabetes mellitus without complications; Z79.84 Long term (current) use of oral hypoglycemic drugs
CPT/HCPCS: G0463; 99202

== ENCOUNTER → 2021-03-10 10:05 | Outpatient (CLI) | payer MEDICARE, BC, SELFPAY ==
[2021-03-10 11:29] LABS: Coronavirus 19 IgG Antibody Positive (Negative); Coronavirus 19 IgM Antibody Negative (Negative)
== END ==
PROVIDERS: Visit Provider Internal Medicine Gastroenterology
DX: Z01.812 Encounter for preprocedural laboratory examination (principal); Z20.822 Contact with and (suspected) exposure to COVID-19; Z12.11 Encounter for screening for malignant neoplasm of colon
CPT/HCPCS: 36415; 86328

== ENCOUNTER 2021-03-13 07:16 | Day surgery (SDC) | payer MEDICARE, BC, SELFPAY ==
[2021-03-07 10:21] VITALS: BMI 31.5
[2021-03-13 07:41] VITALS: BP 153/78; PULSE 92; RESP 18; TEMP 36.2; O2SAT 99
--- NOTE | 2021-03-13 08:00 | SUR.PREOP ---
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 NO NEW ORDERS.
[2021-03-13 08:06] LABS: POC Glucose,Bedside 290 (70-110)
[2021-03-13 08:24] VITALS: O2SAT 100
--- NOTE | 2021-03-13 08:29 | P.PCN_ITS ---
[facility] Procedure Note Procedure Note:: Colonoscopy Procedure Report: Colonoscopy with cold snare polypectomy and cold biopsies Endoscopist: David Santana II, MD Referring physician: Eitan Patel M.D. Date of Procedure: March 13, 2021 Equipment: Olympus 190 variable stiffness pediatric colonoscope Sedation: MAC sedation Indication: Mrs. Ng is a 65-year-old female who is here for diagnostic colonoscopy secondary to a positive Cologuard. Her paternal aunt had colon cancer. She does have some chronic diarrhea. She has lost 25 lbs. She reports some soreness in the anorectal region with sitting. She reports no abdominal pain, bright red rectal bleeding, hematochezia or melena. This is her first colonoscopy. Procedure: Prior to the procedure, a history and physical exam was performed, and patient's medications and allergies were reviewed. The risks, benefits and alternatives of the sedation and procedure were discussed with the patient. All questions were answered and informed consent was obtained. The patient was brought to the procedure room. Patient identification and proposed procedure were verified by the physician and the nurse. The patient was placed in a left lateral decubitus position and the scope was passed under direct vision. Throughout the procedure, the patient's blood pressure, pulse, and oxygen saturations were monitored continuously. The colonoscopy was accomplished without difficulty. The patient tolerated the procedure well. Findings: On digital rectal examination there was normal rectal tone. There were no external hemorrhoids. The colonoscope was introduced through the anal canal to the rectum and advanced to the cecum. The ileocecal valve and appendiceal orifice were identified. The scope was advanced a short distance into the ileum which appeared grossly normal. The scope was then withdrawn into the colon. The cecum, ascending and transverse colon and mucosa were grossly normal. Cold biopsies were taken from the right colon to rule out microscopic colitis. There were scattered diverticuli throughout the descending and sigmoid colon (LEFT colon). There were 2 colon polyps (sigmoid x1 (7 mm) and distal rectal x1 (9 to 10 mm)) which were both removed via cold snare polypectomy. There was minor heme/oozing from the distal rectal polyp and a single Endo Clip was placed over the polypectomy site to provide hemostasis. The remaining rectum itself was normal. Upon retroflexion within the rectum there were grade 1-2 internal hemorrhoids. The preparation was excellent throughout with [place] Preparation Score of 9. The cecal time was 14 minutes. Impression: 1. Colonic polyps x2 2. Left-sided diverticulosis 3. Grade 1-2 internal hemorrhoids Plan: I will follow up the polyp histology and recommend repeat surveillance colonoscopy in 3 to 5 years based upon the size and adenomatous polyps. I would encourage bulk fiber supplementation (FiberCon 2 tablets by mouth daily or twice daily). I will follow-up the biopsies to rule out microscopic colitis. We will discuss dietary measures to follow.
[2021-03-13 08:57] VITALS: BP 115/76; PULSE 74; RESP 12; TEMP 36.6; O2SAT 91
[2021-03-13 09:07] VITALS: BP 153/77; PULSE 75; RESP 16; O2SAT 95
[2021-03-13 09:17] VITALS: BP 129/77; PULSE 77; RESP 16; O2SAT 97
[2021-03-13 09:27] VITALS: BP 141/88; PULSE 61; RESP 16; TEMP 36.6; O2SAT 97
--- NOTE | 2021-03-13 15:23 | P.PN_ITS ---
[facility] Anesthesia Checklist - Structural Data Admitted From: Home Planned Operative Procedure/s: Colonoscopy Consent for Planned Operative Procedure(s) Verified: Yes Verified Documents: Surgical Consent, History and Physical - NPO Status Verified Time NPO: 00:00 - Airway Assessment C-Spine Mobility Assessed: Yes TMJ Mobility Assessed: Yes Dentition: Good Dentition - Neurological Assessment Level of Consciousness: Awake, Alert - Anesthesia Plan Anesthesia Risk discussed: Yes Anesthesia Plan: Verified ASA Class: III Anesthesia Type: MAC [facility] History Medical History: Reports:: Diabetes Mellitus Type 2, Hyperlipidemia, Hypertension Denies:: Cancer, Diabetes Mellitus Type 1, Internal Pacemaker, MRSA, Seizures *Have you ever received a pneumonia vaccine?: Yes *Have you received a flu vaccine this season?: Yes Anesthesia experience/problems:: None Laterality Cases: Bilateral: Arthroscopy Knee, Carpal Tunnel Release Other Surgeries: Yes: Appendectomy, Cholecystectomy, , Hernia Repair. No: Pacemaker Amputation: No Fractures: No - *Social History Last grade of school completed: Advanced degree Smoking Status: Never smoker Alcohol Intake: never Substance Use Type: denies use *Occupational Status:: retired Housing: house Household Members: none *Travel in the last 8 weeks: None Family Hx:: Cancer, Coronary Artery Disease
== END 2021-03-13 09:36 | disposition home or self-care (01) ==
LOC: OUTP 07:19
PROVIDERS: PCP Internal Medicine Adolescent Medicine; Visit Provider Internal Medicine Gastroenterology
PROC: 0DJD8ZZ Inspection of Lower Intestinal Tract, Via Natural or Artificial Opening Endoscopic (ICD-10-PCS; CPT 45378; principal; 2021-03-13 08:30)
DX: K63.5 Polyp of colon (principal); K57.30 Diverticulosis of large intestine without perforation or abscess without bleeding; K62.1 Rectal polyp; K64.0 First degree hemorrhoids; I10 Essential (primary) hypertension; E78.5 Hyperlipidemia, unspecified; E11.9 Type 2 diabetes mellitus without complications; K21.9 Gastro-esophageal reflux disease without esophagitis; Z82.49 Family history of ischemic heart disease and other diseases of the circulatory system; Z80.0 Family history of malignant neoplasm of digestive organs; Z79.84 Long term (current) use of oral hypoglycemic drugs; Z79.899 Other long term (current) drug therapy
CPT/HCPCS: 45380; 45385; 82962; 88305

== ENCOUNTER → 2021-05-30 14:31 | Outpatient (CLI) | payer MEDICARE, BC, SELFPAY ==
--- NOTE | 2021-05-30 14:41 | XR_ITS ---
PROCEDURE: XR HAND RT MIN 3V CLINICAL INDICATION: RT HAND PAIN, SWELLING OF RIGHT HAND COMPARISON: No exams were available for comparison FINDINGS: The patient was unable to remove rings from the 3rd and 4th digits with resultant ring artifact at the proximal phalangeal region and at the PIP joint. No acute fracture or dislocation is evident. The joint spaces are well preserved. The joint spaces are well-preserved. No significant degenerative/arthritic changes. No erosive changes evident. Other findings:None. IMPRESSION: Ring artifact otherwise negative Dictated by: Juan Carlos Caballero MD 05/30/2021 15:00 Juan Carlos Caballero MD in [place] 05/30/2021 15:00
[2021-05-30 14:48] LABS: Basophils # 0.5 K/mm3 (0-0.2); Eosinophils # 0.1 K/mm3 (0.0-0.4); Eosinophils % 0.7 % (0.1-12.0); Hematocrit 45.4 % (37.0-47.0); Hemoglobin 13.7 g/dL (12.2-16.2); Lymphocytes % 14.6 % (10-50); Mean Corpuscular HGB Conc 30.3 g/dL (31.8-35.4); Mean Corpuscular Hemoglobin 28.6 pg (27.0-31.2); Mean Corpuscular Volume 94.5 fl (81-99); Mean Platelet Volume 22.7 fl (7.4-10.4); Monocytes # 0.6 K/mm3 (0.1-1.0); Monocytes % 4.4 % (1.7-9.3); Neutrophils # 10.8 K/mm3 (1.8-7.8); Neutrophils % 80.2 % (37.0-80.0); Platelet Count 285 K/mm3 (142-424); Red Cell Distribution Width 23.7 % (11.5-17.5); White Blood Count 13.5 K/mm3 (4.8-10.8)
== END ==
PROVIDERS: Visit Provider Nurse Practitioner Family
DX: M79.641 Pain in right hand (principal); M79.89 Other specified soft tissue disorders
CPT/HCPCS: 36415; 73130; 84550; 85025

== ENCOUNTER → 2021-06-08 09:53 | Outpatient (CLI) | payer MEDICARE, BC, SELFPAY ==
[2021-06-08 10:19] LABS: Basophils # 0.1 K/mm3 (0-0.2); Basophils % 0.5 % (0.1-2.0); Eosinophils # 0.1 K/mm3 (0.0-0.4); Eosinophils % 0.6 % (0.1-12.0); Hematocrit 40.8 % (37.0-47.0); Hemoglobin 13.1 g/dL (12.2-16.2); Lymphocytes % 19.2 % (10-50); Mean Corpuscular HGB Conc 32.2 g/dL (31.8-35.4); Mean Corpuscular Hemoglobin 29.8 pg (27.0-31.2); Mean Corpuscular Volume 92.4 fl (81-99); Mean Platelet Volume 8.2 fl (7.4-10.4); Monocytes # 0.4 K/mm3 (0.1-1.0); Monocytes % 4.2 % (1.7-9.3); Neutrophils % 75.6 % (37.0-80.0); Platelet Count 340 K/mm3 (142-424); Red Blood Count 4.41 M/mm3 (4.20-5.40); Red Cell Distribution Width 13.4 % (11.5-17.5); White Blood Count 10.6 K/mm3 (4.8-10.8)
[2021-06-08 11:05] LABS: Alanine Aminotransferase 29 U/L (12-78); Albumin Level 4.3 g/dl (3.5-5.0); Albumin/Globulin Ratio 1.4 (1.1-1.8); Alkaline Phosphatase 78 U/L (38-126); Anion Gap 16.3 mEq/L (5-15); Aspartate Amino Transferase 29 U/L (14-36); Bilirubin,Total 0.7 mg/dl (0.2-1.3); Blood Urea Nitrogen 20 mg/dl (7-17); Calcium 9.6 mg/dl (8.4-10.2); Carbon Dioxide 27 mmol/L (22.0-30.0); Chloride 102 mmol/L (98-107); Chol/HDL Ratio 2.6 (1-3.5); Cholesterol 99 mg/dl (140-200); Estimated Glomerular Filt Rate 72 ml/min (>60); GFR (African American) 87 ML/MIN (>60); Globulin 3.1 g/dL (1.3-3.2); Glucose 163 mg/dl (74-100); HDL Cholesterol 38 mg/dl (40-60); Potassium 4.3 mmoL/L (3.5-5.1); Sodium 141 mmol/L (136-145); Total Protein,Serum 7.4 g/dl (6.3-8.2); Triglycerides 99 mg/dl (30-150); VLDL Cholesterol 20 mg/dL (0-40)
[2021-06-08 11:16] LABS: Direct LDL Cholesterol 43.62 mg/dL (100-129)
[2021-06-08 11:20] LABS: Hemoglobin A1C 7.6 % (4.0-6.0)
== END ==
PROVIDERS: Visit Provider Internal Medicine Adolescent Medicine
DX: E11.9 Type 2 diabetes mellitus without complications (principal); E78.5 Hyperlipidemia, unspecified; Z79.84 Long term (current) use of oral hypoglycemic drugs
CPT/HCPCS: 36415; 80053; 80061; 83036; 85025

== ENCOUNTER → 2021-09-09 08:48 | Outpatient (CLI) | payer MEDICARE, BC, SELFPAY ==
[2021-09-09 10:07] LABS: Chloride 104 mmol/L (98-107); Potassium 4.2 mmoL/L (3.5-5.1); Sodium 141 mmol/L (136-145)
[2021-09-09 10:09] LABS: Blood Urea Nitrogen 12 mg/dl (7-17); Estimated Glomerular Filt Rate 100 ml/min (>60); GFR (African American) 121 ML/MIN (>60)
[2021-09-09 10:10] LABS: Alanine Aminotransferase 20 U/L (12-78); Alkaline Phosphatase 89 U/L (38-126); Anion Gap 15.2 mEq/L (5-15); Aspartate Amino Transferase 24 U/L (14-36); Bilirubin,Total 0.5 mg/dl (0.2-1.3); Calcium 9.4 mg/dl (8.4-10.2); Carbon Dioxide 26 mmol/L (22.0-30.0); Chol/HDL Ratio 2.7 (1-3.5); Cholesterol 106 mg/dl (140-200); Glucose 174 mg/dl (74-100); HDL Cholesterol 40 mg/dl (40-60); Total Protein,Serum 6.9 g/dl (6.3-8.2); Triglycerides 107 mg/dl (30-150); VLDL Cholesterol 21 mg/dL (0-40)
[2021-09-09 10:28] LABS: Hemoglobin A1C 6.6 % (4.0-6.0)
[2021-09-09 13:58] LABS: Albumin Level 3.7 g/dl (3.5-5.0); Albumin/Globulin Ratio 1.2 (1.1-1.8); Globulin 3.2 g/dL (1.3-3.2)
== END ==
PROVIDERS: PCP Internal Medicine Adolescent Medicine; Visit Provider Internal Medicine Adolescent Medicine
DX: E11.9 Type 2 diabetes mellitus without complications (principal); Z79.84 Long term (current) use of oral hypoglycemic drugs
CPT/HCPCS: 80053; 80061; 83036

== ENCOUNTER → 2023-03-05 09:45 | Outpatient (CLI) | payer MEDICARE, BC, SELFPAY ==
--- NOTE | 2023-03-05 09:50 | XR_ITS ---
FINAL REPORT CLINICAL HISTORY: RT SHOULDER PAIN ACUTE COMPARISON: March 2019 FINDINGS: 3 views of the right shoulder were obtained. There is no acute fracture or dislocation. There are mild degenerative changes of the acromioclavicular and glenohumeral joints. There is mild superior subluxation of the humerus. There is chronic appearing deformity of the infraspinous scapula that could represent a prior fracture. Mass is felt less likely. IMPRESSION: No acute fracture. Superior subluxation of the humerus. Rotator cuff tear not excluded. If indicated, MRI. Chronic appearing deformity of the infraspinous scapula could represent prior fracture. Mass is felt less likely. If indicated CT or MRI could further evaluate. Reviewed, Interpreted and Dictated by Ajith Pham III, MD Transcribed by Raymond Beckford Authenticated and [facility]
== END ==
PROVIDERS: PCP Internal Medicine Adolescent Medicine; Visit Provider Nurse Practitioner Family
DX: M25.511 Pain in right shoulder (principal)
CPT/HCPCS: 73030

== ENCOUNTER → 2023-03-12 16:08 | Outpatient (CLI) | payer MEDICARE, BC, SELFPAY ==
--- NOTE | 2023-03-12 16:43 | MR_ITS ---
PROCEDURE INFORMATION: Exam: MR Right Upper Extremity Joint Without Contrast; Shoulder Exam date and time: 03/12/2023 4:53 PM Age: 67 years old Clinical indication: Pain; Shoulder; Right; Additional info: Acute pain of right shoulder. Limited rom. Pain when laying on shoulder. 2-3 week. TECHNIQUE: Imaging protocol: Magnetic resonance imaging of the right upper extremity without contrast. Exam focused on the shoulder. COMPARISON: CR XR SHOULDER RT MIN 2V 03/05/2023 9:57 AM FINDINGS: Bones/joints: Small glenohumeral joint effusion. Acromioclavicular arthropathy identified. A small effusion is seen within the acromioclavicular joint. There is a C-shaped acromion process. A focus of T2 hyperintensity seen within the bone marrow of the acromion process, likely secondary to arthropathy or prior trauma. Glenohumeral arthropathy. There is spurring of the medial aspect of the humeral head. Glenoid cartilage loss is seen. Subchondral cystic change is seen within the glenoid process. A high riding humeral head is seen. Spurring is identified of the greater tuberosity. Glenoid labrum: Tears are visualized of the superior aspect of the labrum. Blunting and suggested tear visualized of the posterior aspect of the labrum. There is blunting of the anterior aspect of the labrum. Heterogeneous signal intensity of the inferior aspect of the labrum, and labral tear cannot be excluded. Supraspinatus tendon: See below. Infraspinatus tendon: Complete tears are identified of the supraspinatus and infraspinatus tendons, with retraction. Fluid is identified within these defects as well as the subdeltoid/subacromial bursa. Subscapularis tendon: Full-thickness tear of the subscapularis tendon. Teres minor tendon: No evidence of tear. Tendon of biceps brachii: Medial subluxation of the long head of the biceps tendon. There is heterogeneous signal intensity of this tendon, with partial tear. Glenohumeral ligaments: Increased signal intensity is seen within the humeral attachment of the inferior glenohumeral ligament. Ligament tear or avulsion is considered, although there is no adjacent edema or fluid. Soft tissues: Atrophy of the supraspinatus and infraspinatus muscles. Lymph nodes: Nonspecific axillary lymph nodes are seen. IMPRESSION: 1. Complete tears are identified of the supraspinatus and infraspinatus tendons, with retraction. Fluid is identified within these defects as well as the subdeltoid/subacromial bursa. 2. Full-thickness tear of the subscapularis tendon. 3. Medial subluxation of the long head of the biceps tendon, with partial tear. 4. Small glenohumeral joint effusion. 5. Acromioclavicular arthropathy identified. Glenohumeral arthropathy. 6. Labral tears. 7. A high riding humeral head is seen. 8. Increased signal intensity is seen within the humeral attachment of the inferior glenohumeral ligament. Ligament tear or avulsion is considered. 9. Additional findings described above.
== END ==
PROVIDERS: PCP Internal Medicine Adolescent Medicine; Visit Provider Nurse Practitioner Family
DX: M25.511 Pain in right shoulder (principal)
CPT/HCPCS: 73221

== ENCOUNTER → 2023-04-23 16:24 | Outpatient (CLI) | payer MEDICARE, BC, SELFPAY ==
--- NOTE | 2023-04-23 16:33 | XR_ITS ---
PROCEDURE INFORMATION: Exam: XR Left Shoulder Exam date and time: 04/23/2023 4:51 PM Age: 67 years old Clinical indication: Pain; Shoulder; Left; Additional info: Arthropathies TECHNIQUE: Imaging protocol: Radiologic exam of the left shoulder. Views: 2 or more views. COMPARISON: CR (CHEST, CXR AP LANDSCAPE) 04/17/2019 3:32 PM FINDINGS: Bones/joints: Osteopenia. Mild lateral downward angulation of the acromion with respect to the humeral head. Potential for impingement mechanism. Soft tissues: Normal. IMPRESSION: 1. No evidence of acute osseous injury. 2. Mild lateral downward angulation of the acromion with respect to the humeral head. Potential for impingement mechanism.
== END ==
PROVIDERS: PCP Internal Medicine Adolescent Medicine; Visit Provider Internal Medicine Adolescent Medicine
DX: M12.812 Other specific arthropathies, not elsewhere classified, left shoulder (principal)
CPT/HCPCS: 73030

== ENCOUNTER 2023-04-29 10:00 | Outpatient (RCR) | payer MEDICARE, BC, SELFPAY ==
--- NOTE | 2023-04-02 12:22 | HMH.PTOPEV ---
PT Outpatient Evaluation Rehab PT Outpatient Evaluation Start: 04/02/23 09:48 Freq: Status: Active Protocol: Document 04/02/23 12:04 MIGUEL ANGEL (Rec: 04/02/23 12:22 MIGUEL ANGEL [id number]) E-signed By Josefina Arriaga, PT Outpatient Therapy Subjective History Subjective History Pt is a 67 y/o female who reports insidious onset of R scapular/shoulder pain a little over a month ago that is worse at night time. Pt reports she has been moving houses but denies known trauma /injury or specific onset of pain. Pt reports intermittent tingling of her R fingers as well. Pt denies clicking/ popping/clunking or swelling of the shoulder. Pt reports she had a steroid inejction ~3 weeks ago which helped a lot with pain especially with sleeping at night. Pt denies overall shoulder pain just reports discomfort. Pt had a R shoulder MRI at [facility] on 03/12 with impression of: Complete tears are identified of the supraspinatus and infraspinatus tendons, with retraction. Fluid is identified within these defects as well as the subdeltoid/subacromial bursa. Full-thickness tear of the subscapularis tendon. Medial subluxation of the long head of the biceps tendon, with partial tear. Small glenohumeral joint effusion. Acromioclavicular arthropathy identified. Glenohumeral arthropathy. Labral tears. A high riding humeral head is seen.Increased signal intensity is seen within the humeral attachment of the inferior glenohumeral ligament . Ligament tear or avulsion is considered. Pt reports she sees an orthopedic doctor at
--- NOTE | 2023-04-02 18:07 | HMH.PTOPEV ---
PT Outpatient Evaluation Rehab PT Outpatient Evaluation Start: 04/02/23 09:48 Freq: Status: Active Protocol: Document 04/02/23 12:04 MIGUEL ANGEL (Rec: 04/02/23 12:22 MIGUEL ANGEL [id number]) E-signed By Josefina Arriaga, PT Outpatient Therapy Subjective History Subjective History Pt is a 67 y/o female who reports insidious onset of R scapular/shoulder pain a little over a month ago that is worse at night time. Pt reports she has been moving houses but denies known trauma /injury or specific onset of pain. Pt reports intermittent tingling of her R fingers as well. Pt denies clicking/ popping/clunking or swelling of the shoulder. Pt reports she had a steroid inejction ~3 weeks ago which helped a lot with pain especially with sleeping at night. Pt denies overall shoulder pain just reports discomfort. Pt had a R shoulder MRI at [facility] on 03/12 with impression of: Complete tears are identified of the supraspinatus and infraspinatus tendons, with retraction. Fluid is identified within these defects as well as the subdeltoid/subacromial bursa. Full-thickness tear of the subscapularis tendon. Medial subluxation of the long head of the biceps tendon, with partial tear. Small glenohumeral joint effusion. Acromioclavicular arthropathy identified. Glenohumeral arthropathy. Labral tears. A high riding humeral head is seen.Increased signal intensity is seen within the humeral attachment of the inferior glenohumeral ligament . Ligament tear or avulsion is considered. Pt reports she sees an orthopedic doctor at
== END 2023-04-29 10:05 | disposition home or self-care (01) ==
LOC: PT 10:00
PROVIDERS: PCP Internal Medicine Adolescent Medicine; Visit Provider Internal Medicine Adolescent Medicine
DX: M75.101 Unspecified rotator cuff tear or rupture of right shoulder, not specified as traumatic (principal)
CPT/HCPCS: 97010; 97014; 97016; 97110; 97140; 97163; 97530; 97535; G0283

== ENCOUNTER 2023-05-01 10:08 | Outpatient (RCR) | payer MEDICARE, BC, SELFPAY | END 2023-05-01 10:10 | disposition home or self-care (01) | LOC: OT 10:08 | PROVIDERS: PCP Internal Medicine Adolescent Medicine; Visit Provider Internal Medicine Adolescent Medicine | DX: M25.512 Pain in left shoulder (principal) | CPT/HCPCS: 97110; 97165 ==

== ENCOUNTER → 2023-07-10 09:48 | Outpatient (CLI) | payer MEDICARE, BC, SELFPAY ==
[2023-07-10 11:28] LABS: Hemoglobin A1C 6.4 % (4.0-6.0)
[2023-07-10 11:35] LABS: Chloride 105 mmol/L (98-107)
[2023-07-10 11:36] LABS: Potassium 4.2 mmoL/L (3.5-5.1); Sodium 141 mmol/L (136-145)
[2023-07-10 11:38] LABS: Alanine Aminotransferase 21 U/L (12-78); Alkaline Phosphatase 93 U/L (38-126); Anion Gap 16.2 mEq/L (5-15); Aspartate Amino Transferase 23 U/L (14-36); Bilirubin,Total 0.4 mg/dl (0.2-1.3); Blood Urea Nitrogen 20 mg/dl (7-17); Carbon Dioxide 24 mmol/L (22.0-30.0); Cholesterol 106 mg/dl (140-200); Estimated Glomerular Filt Rate 71 ml/min (>60); GFR (African American) 86 ML/MIN (>60); Triglycerides 94 mg/dl (30-150); VLDL Cholesterol 19 mg/dL (0-40)
[2023-07-10 11:39] LABS: Albumin Level 3.7 g/dl (3.5-5.0); Albumin/Globulin Ratio 1.2 (1.1-1.8); Calcium 9.9 mg/dl (8.4-10.2); Globulin 3.1 g/dL (1.3-3.2); Glucose 139 mg/dl (74-100); Total Protein,Serum 6.8 g/dl (6.3-8.2)
[2023-07-10 13:16] LABS: Chol/HDL Ratio 2.7 (1-3.5); HDL Cholesterol 40 mg/dl (40-60)
== END ==
PROVIDERS: PCP Internal Medicine Adolescent Medicine; Visit Provider Internal Medicine Adolescent Medicine
DX: E11.69 Type 2 diabetes mellitus with other specified complication (principal); E78.5 Hyperlipidemia, unspecified; Z79.84 Long term (current) use of oral hypoglycemic drugs
CPT/HCPCS: 36415; 80053; 80061; 83036

== ENCOUNTER 2023-08-20 09:00 | Outpatient (RCR) | payer MEDICARE, BC, SELFPAY | END 2023-08-20 09:05 | disposition home or self-care (01) | LOC: OT 09:00 | PROVIDERS: PCP Internal Medicine Adolescent Medicine; Visit Provider Internal Medicine Adolescent Medicine | DX: M25.512 Pain in left shoulder (principal) | CPT/HCPCS: 97010; 97014; 97035; 97110; 97140; 97165; 97530; G0283 ==

== ENCOUNTER 2023-09-09 10:53 | Emergency (ER) | payer MEDICARE, BC, SELFPAY ==
[2023-09-09 12:00] VITALS: BP 136/90; PULSE 87; RESP 18; TEMP 36.8; O2SAT 98; BMI 27.9
--- NOTE | 2023-09-09 12:33 | EXP.UTC ---
Discharge Plan Disposition Patient Disposition: Home, Self-Care Condition: Good Prescriptions Prescriptions: New amoxicillin-pot clavulanate 875-125 mg Tablet 1 tab PO Q12H Qty: 20 0RF fluticasone propionate [Flonase Allergy Relief] 50 mcg/actuation spray,suspension 1 - 2 spray intranasal DAILY Qty: 16 0RF Rx Instructions: administer into each nostril daily No Action atorvastatin 40 MG tablet 40 mg PO HS trandolapril 4 MG tablet 4 mg PO DAILY glimepiride 2 MG tablet 4 mg PO BID metformin 1,000 MG tablet 1,000 mg PO BID verapamil 240 MG tablet extended release 240 mg PO DAILY famotidine 20 MG tablet 20 mg PO NEEDED PRN (Reason: Acid Reflux) Referrals Follow up/Referrals: Eitan Patel MD [Primary Care Provider] - See instructions Activity Restrictions/Add. Instructions Additional Instructions/Restrictions: *Monitor Temp, Over the counter Motrin or Tylenol as directed/as needed Tylenol every 4 hours and Motrin every 6 hours (as long as your family doctor has told you that you can take it) for fever or pain. and straight to ER if unable to lower temp less than 101.0 after medication given *Warm salt water gargles may help to soothe the throat *Throat Lozenges? *Warm fluids like tea with honey may help to soothe the throat? *Sleep elevated *Humidifier/Vaporizer *Flonase 2 sprays in each nostril daily but be aware that it may take 2-3 days before you notice improvement Take antibiotics as prescribed Follow up IMMEDIATELY for new or worsening symptoms or no Noticeable improvement over the next 48-72 hours. 911 for difficulty breathing or swallowing Clinical Impressions Clinical Impression: Sinusitis Qualifiers: Sinusitis location: unspecified location Chronicity: unspecified Qualified Code(s): J32.9 - Chronic sinusitis, unspecified Instructions Patient Instructions: DI for Sinusitis, Sinusitis Discharge ED Provider: Lucie Clemens [facility] HPI General Stated complaint: suspected sinus infection Mode of Arrival: Ambulatory Source of Information: Patient Limitations: No Limitations Time Seen by Provider: 09/09/23 12:33 Description of Symptoms (Recalled from Triage Doc. by RN): sinus drainage, cough, and chest congestion HEENT Symptoms (Recalled from RN notes): Yes Resp Symptoms (Recalled from RN notes): No Skin Symptoms (Recalled from RN notes): No MS Symptoms (Recalled from RN notes): No Functional Status (Recalled from RN notes): n/a History of Present Illness Provider Complaint: Patient states that she thinks she may have a sinus infection States that she has been having sinus pain and pressure and sinus headache with drainage in the back of her throat and feels like it is trying to move into her chest so she came to get checked before it got too bad Related Data Home Medications Medication Instructions Recorded Confirmed atorvastatin 40 mg tablet 40 mg PO HS Cholesterol 11/26/20 09/09/23 glimepiride 2 mg tablet 4 mg PO BID Diabetes 11/26/20 09/09/23 metformin 1,000 mg tablet 1,000 mg PO BID Diabetes 11/26/20 09/09/23 trandolapril 4 mg tablet 4 mg PO DAILY Hypertension 11/26/20 09/09/23 verapamil 240 mg tablet,extended 240 mg PO DAILY Hypertension 11/26/20 09/09/23 release famotidine 20 mg tablet 20 mg PO NEEDED PRN Acid Reflux 03/13/21 09/09/23 Previous Rx's Medication Instructions Recorded amoxicillin 875 mg-potassium 1 tab PO Q12H #20 tabs 09/09/23 clavulanate 125 mg tablet fluticasone propionate 50 1 - 2 spray intranasal DAILY #16 09/09/23 mcg/actuation nasal grams spray,suspension (Flonase Allergy Relief) Allergies Allergy/AdvReac Type Severity Reaction Status Date / Time No Known Allergies Allergy Verified 09/09/23 12:21 Worker's Comp Is this a Worker's Comp case?: No [facility] Disclaimer: The information contained in this section may have been updated after t
[2023-09-09 12:52] VITALS: BP 136/90; PULSE 81; RESP 18; TEMP 36.8; O2SAT 98
== END 2023-09-09 12:52 | disposition home or self-care (01) ==
PROVIDERS: Emergency Provider Nurse Practitioner; PCP Internal Medicine Adolescent Medicine
DX: J01.90 Acute sinusitis, unspecified (principal)
CPT/HCPCS: 99212; 99214; G0463

== ENCOUNTER 2023-12-05 09:43 | Outpatient (CLI) | payer MEDICARE, BC, SELFPAY ==
[2023-12-05 10:41] LABS: Chloride 104 mmol/L (98-107)
[2023-12-05 10:42] LABS: Potassium 4.1 mmoL/L (3.5-5.1)
[2023-12-05 10:44] LABS: Alanine Aminotransferase 21 U/L (12-78); Alkaline Phosphatase 100 U/L (38-126); Aspartate Amino Transferase 26 U/L (14-36); Bilirubin,Total 0.5 mg/dl (0.2-1.3); Blood Urea Nitrogen 17 mg/dl (7-17); Estimated Glomerular Filt Rate 83 ml/min (>60); GFR (African American) 100 ML/MIN (>60)
[2023-12-05 10:45] LABS: Albumin Level 4.1 g/dl (3.5-5.0); Albumin/Globulin Ratio 1.4 (1.1-1.8); Calcium 9.4 mg/dl (8.4-10.2); Carbon Dioxide 25 mmol/L (22.0-30.0); Chol/HDL Ratio 2.6 (1-3.5); Cholesterol 99 mg/dl (140-200); Glucose 141 mg/dl (74-100); HDL Cholesterol 38 mg/dl (40-60); Total Protein,Serum 7.1 g/dl (6.3-8.2); Triglycerides 96 mg/dl (30-150); VLDL Cholesterol 19 mg/dL (0-40)
[2023-12-05 11:03] LABS: Direct LDL Cholesterol 51.66 mg/dL (100-129)
[2023-12-05 11:16] LABS: Anion Gap 15.1 mEq/L (5-15); Sodium 140 mmol/L (136-145)
[2023-12-05 11:25] LABS: Hemoglobin A1C 6.3 % (4.0-6.0)
== END 2023-12-05 23:59 ==
LOC: LAB 09:45
PROVIDERS: PCP Internal Medicine Adolescent Medicine; Visit Provider Internal Medicine Adolescent Medicine
DX: E11.9 Type 2 diabetes mellitus without complications (principal); E78.5 Hyperlipidemia, unspecified; Z79.84 Long term (current) use of oral hypoglycemic drugs
CPT/HCPCS: 36415; 80053; 80061; 83036

== ENCOUNTER 2024-02-25 10:00 | Outpatient (RCR) | payer MEDICARE, BC, SELFPAY | END 2024-02-25 10:05 | disposition home or self-care (01) | LOC: OT 10:00 | PROVIDERS: PCP Internal Medicine Adolescent Medicine; Visit Provider Student in an Organized Health Care Education/Training Program | DX: M25.511 Pain in right shoulder (principal); Z96.611 Presence of right artificial shoulder joint | CPT/HCPCS: 97010; 97014; 97110; 97140; 97164; 97166; G0283 ==

== ENCOUNTER 2024-05-27 09:14 | Outpatient (CLI) | payer MEDICARE, BC, SELFPAY ==
[2024-05-27 10:08] LABS: Alanine Aminotransferase 24 U/L (12-78); Albumin Level 4.2 g/dl (3.5-5.0); Albumin/Globulin Ratio 1.3 (1.1-1.8); Alkaline Phosphatase 71 U/L (38-126); Anion Gap 13.3 mEq/L (5-15); Aspartate Amino Transferase 26 U/L (14-36); Bilirubin,Total 0.4 mg/dl (0.2-1.3); Blood Urea Nitrogen 21 mg/dl (7-17); Calcium 9.8 mg/dl (8.4-10.2); Carbon Dioxide 27 mmol/L (22.0-30.0); Chloride 105 mmol/L (98-107); Chol/HDL Ratio 2.6 (1-3.5); Cholesterol 112 mg/dl (140-200); Estimated Glomerular Filt Rate 71 ml/min (>60); GFR (African American) 86 ML/MIN (>60); Globulin 3.3 g/dL (1.3-3.2); Glucose 184 mg/dl (74-100); HDL Cholesterol 43 mg/dl (40-60); Potassium 4.3 mmoL/L (3.5-5.1); Sodium 141 mmol/L (136-145); Total Protein,Serum 7.5 g/dl (6.3-8.2); Triglycerides 118 mg/dl (30-150); VLDL Cholesterol 24 mg/dL (0-40)
[2024-05-27 10:19] LABS: Direct LDL Cholesterol 44.05 mg/dL (100-129)
[2024-05-27 16:08] LABS: Hemoglobin A1C 6.7 % (4.0-6.0)
== END 2024-05-27 23:59 | disposition home or self-care (01) ==
LOC: LAB 09:16
PROVIDERS: PCP Internal Medicine Adolescent Medicine; Visit Provider Internal Medicine Adolescent Medicine
DX: E11.69 Type 2 diabetes mellitus with other specified complication (principal); Z79.84 Long term (current) use of oral hypoglycemic drugs
CPT/HCPCS: 36415; 80053; 80061; 83036

== ENCOUNTER 2024-06-08 11:21 | Outpatient (CLI) | payer MEDICARE, BC, SELFPAY ==
[2024-06-08 12:33] LABS: 25-OH Vitamin D, Total 57.2 ng/mL (30-100)
[2024-06-08 12:34] LABS: Triiodothryronine (T3) Uptake 35 % (23.5-40.5)
[2024-06-08 12:35] LABS: Free Thyroxine Index 2.9 ug/dL (5.93-13.13); T4 (Thyroxine) 8.4 ug/dl (5.53-11.0)
[2024-06-08 13:05] LABS: Vitamin B12 865 pg/mL (239-931)
== END 2024-06-08 23:59 | disposition home or self-care (01) ==
LOC: LAB 11:23
PROVIDERS: PCP Internal Medicine Adolescent Medicine; Visit Provider Internal Medicine Adolescent Medicine
DX: E11.69 Type 2 diabetes mellitus with other specified complication (principal); E55.9 Vitamin D deficiency, unspecified
CPT/HCPCS: 36415; 82306; 82607; 83735; 84436; 84443; 84479

== ENCOUNTER 2024-10-02 08:49 | Outpatient (CLI) | payer MEDICARE, BC, SELFPAY ==
[2024-10-02 09:14] LABS: Basophils # 0.1 K/mm3 (0-0.2); Basophils % 0.7 % (0.1-2.0); Eosinophils # 0.1 K/mm3 (0.0-0.4); Hematocrit 39.4 % (37.0-47.0); Hemoglobin 13.2 g/dL (12.2-16.2); Lymphocytes # 2.1 K/mm3 (0.7-4.5); Mean Corpuscular HGB Conc 33.6 g/dL (31.8-35.4); Mean Corpuscular Hemoglobin 31.1 pg (27.0-31.2); Mean Corpuscular Volume 92.6 fl (81-99); Mean Platelet Volume 8.6 fl (7.4-10.4); Monocytes # 0.4 K/mm3 (0.1-1.0); Monocytes % 5.2 % (1.7-9.3); Neutrophils # 5.4 K/mm3 (1.8-7.8); Neutrophils % 67.1 % (37.0-80.0); Platelet Count 313 K/mm3 (142-424); Red Blood Count 4.26 M/mm3 (4.20-5.40)
[2024-10-02 10:06] LABS: Alanine Aminotransferase 20 U/L (12-78); Albumin Level 4.1 g/dl (3.5-5.0); Albumin/Globulin Ratio 1.5 (1.1-1.8); Alkaline Phosphatase 96 U/L (38-126); Anion Gap 14.5 mEq/L (5-15); Aspartate Amino Transferase 24 U/L (14-36); Bilirubin,Total 0.9 mg/dl (0.2-1.3); Blood Urea Nitrogen 18 mg/dl (7-17); Calcium 9.9 mg/dl (8.4-10.2); Carbon Dioxide 25 mmol/L (22.0-30.0); Chloride 105 mmol/L (98-107); Chol/HDL Ratio 2.4 (1-3.5); Cholesterol 93 mg/dl (140-200); Estimated Glomerular Filt Rate 83 ml/min (>60); GFR (African American) 100 ML/MIN (>60); Globulin 2.8 g/dL (1.3-3.2); Glucose 165 mg/dl (74-100); HDL Cholesterol 38 mg/dl (40-60); Magnesium 1.6 mg/dl (1.6-2.3); Potassium 4.5 mmoL/L (3.5-5.1); Sodium 140 mmol/L (136-145); Total Protein,Serum 6.9 g/dl (6.3-8.2); Triglycerides 139 mg/dl (30-150); VLDL Cholesterol 28 mg/dL (0-40)
[2024-10-02 10:16] LABS: Direct LDL Cholesterol 40.54 mg/dL (100-129)
[2024-10-02 10:23] LABS: Free Thyroxine Index 3.6 ug/dL (5.93-13.13); T4 (Thyroxine) 9.3 ug/dl (5.53-11.0); Triiodothryronine (T3) Uptake 39 % (23.5-40.5)
[2024-10-02 10:36] LABS: Hemoglobin A1C 6.5 % (4.0-6.0); Thyroid Stimulating Hormone 0.96 uIU/mL (0.465-4.68)
[2024-10-02 10:54] LABS: Vitamin B12 > 1000 pg/mL (239-931)
== END 2024-10-02 23:59 | disposition home or self-care (01) ==
LOC: LAB 08:52
PROVIDERS: PCP Internal Medicine Adolescent Medicine; Visit Provider Internal Medicine Adolescent Medicine
DX: E11.69 Type 2 diabetes mellitus with other specified complication (principal); E78.5 Hyperlipidemia, unspecified; G62.9 Polyneuropathy, unspecified; I10 Essential (primary) hypertension; G60.9 Hereditary and idiopathic neuropathy, unspecified
CPT/HCPCS: 36415; 80053; 80061; 82607; 83036; 83735; 84436; 84443; 84479; 85025

== ENCOUNTER 2024-10-26 11:36 | Emergency (ER) | payer MEDICARE, BC, SELFPAY ==
[2024-10-26 11:52] VITALS: BP 150/79; PULSE 82; RESP 18; TEMP 36.6; O2SAT 96; BMI 28.7
--- NOTE | 2024-10-26 11:56 | ED_ITS ---
Discharge Plan Disposition Patient Disposition: Home, Self-Care Condition: Good Prescriptions Prescriptions: New benzonatate 100 mg capsule 100 mg PO TID PRN (Reason: cough) Qty: 30 0RF amoxicillin-pot clavulanate 875-125 mg Tablet 1 tab PO Q12H 7 Days Qty: 14 0RF fluticasone propionate [Flonase Allergy Relief] 50 mcg/actuation spray,suspension 2 spray intranasal DAILY Qty: 16 0RF Rx Instructions: administer into each nostril daily No Action atorvastatin 40 MG tablet 40 mg PO HS trandolapril 4 MG tablet 4 mg PO DAILY glimepiride 2 MG tablet 4 mg PO BID metformin 1,000 MG tablet 1,000 mg PO BID verapamil 240 MG tablet extended release 240 mg PO DAILY Referrals Follow up/Referrals: Eitan Patel MD [Primary Care Provider] - See instructions Activity Restrictions/Add. Instructions Additional Instructions/Restrictions: *Monitor Temp, Over the counter Motrin or Tylenol as directed/as needed Tylenol every 4 hours and Motrin every 6 hours (as long as your family doctor has told you that you can take it) for fever or pain. and straight to ER if unable to lower temp less than 101.0 after medication given *Warm salt water gargles may help to soothe the throat *Throat Lozenges? *Warm fluids like tea with honey may help to soothe the throat? *Sleep elevated *Humidifier/Vaporizer *Flonase 2 sprays in each nostril daily but be aware that it may take 2-3 days before you notice improvement Take medication as prescribed Follow up IMMEDIATELY for new or worsening symptoms or no Noticeable improvement over the next 48-72 hours. 911 for difficulty breathing or swallowing Clinical Impressions Clinical Impression: Sinusitis Instructions Patient Instructions: DI for Sinusitis, Sinusitis Print Language Print Language: Urdu Discharge ED Provider: Lucie Clemens [facility] HPI General Stated complaint: sinus pressure, cough, drainage, congestion Mode of Arrival: Ambulatory Source of Information: Patient Time Seen by Provider: 10/26/24 11:56 Description of Symptoms (Recalled from Triage Doc. by RN): COUGH, SINUS CONGESTION, FATIGUE HEENT Symptoms (Recalled from RN notes): No Resp Symptoms (Recalled from RN notes): Yes Skin Symptoms (Recalled from RN notes): No MS Symptoms (Recalled from RN notes): No Functional Status (Recalled from RN notes): WNL History of Present Illness Provider Complaint: Patient states that she has been fighting a sinus infection for over a week States that she has been taking OTC medications but they havent helped much so today she came in to get something States that she has been having sinus congestion and pressure and cough Related Data Home Medications ?Medication ?Instructions ?Recorded ?Confirmed atorvastatin 40 mg tablet 40 mg PO HS Cholesterol 11/26/20 10/26/24 glimepiride 2 mg tablet 4 mg PO BID Diabetes 11/26/20 10/26/24 metformin 1,000 mg tablet 1,000 mg PO BID Diabetes 11/26/20 10/26/24 trandolapril 4 mg tablet 4 mg PO DAILY Hypertension 11/26/20 10/26/24 verapamil 240 mg tablet,extended 240 mg PO DAILY Hypertension 11/26/20 10/26/24 release Previous Rx's ?Medication ?Instructions ?Recorded amoxicillin 875 mg-potassium 1 tab PO Q12H 7 days #14 tabs 10/26/24 clavulanate 125 mg tablet benzonatate 100 mg capsule 100 mg PO TID PRN cough #30 caps 10/26/24 fluticasone propionate 50 2 spray intranasal DAILY #16 grams 10/26/24 mcg/actuation nasal spray,suspension (Flonase Allergy Relief) Allergies Allergy/AdvReac Type Severity Reaction Status Date / Time No Known Allergies Allergy Verified 09/09/23 12:21 Worker's Comp Is this a Worker's Comp case?: No [facility] Disclaimer: The information contained in this section may have been updated after the patient was seen, as this information can be updated by other users. Surgical History History of colonoscopy Social History Smoking Status: Never smoker second hand exposure: No alcohol intake: never substance use type: denies use current occupational status: retired Travel in the last 8 weeks: None household members: none housing: house caffeine: Yes ROS Obtained: Yes All systems reviewed & no additional complaints except as documented and Yes Systems reviewed as appropriate & no additional complaints except as documented Constitutional Constitutional: Reports system reviewed and no additional complaints, except as documented and Reports as per HPI ENT Ears, Nose, Mouth, and Throat: Reports system reviewed and no additional complaints, except as documented, Reports as per HPI, Reports sinus pain and Reports sinus pressure Cardiovascular Cardiovascular: Reports system reviewed and no additional complaints, except as documented and Reports as per HPI Respiratory Respiratory: Reports system reviewed and no additional complaints, except as documented, Reports as per HPI, Denies shortness of breath, Denies chest congestion and Reports cough Gastrointestinal Gastrointestingal: Reports system reviewed and no additional complaints, except as documented and as per HPI Genitourinary Female Genitourinary: Reports system reviewed and no additional complaints, except as documented and Reports as per HPI Physical Exam General General appearance: alert and in no apparent distress ENT ENT exam: Present mucous membranes moist Expanded ENT Exam Nose exam: Present sinus tenderness Throat exam: Present other (PND noted ) Respiratory Respiratory exam: Present normal lung sounds bilaterally; Absent respiratory distress or wheezes Cardiovascular Cardiovascular exam: Present regular rate, normal rhythm and normal heart sounds Neurological Exam Neurological exam: Present alert, oriented X3 and normal gait Medical Decision Making Medical Records Screening: Per USPSTF and CDC recommendations, given the prevalence of disease in our region, it is our hospital?s policy to screen for HIV and viral Hepatitis for all patients aged 18 and over and those with ongoing risk factors. Jhon Inquiry Pt receiving controlled substance: No Jhon was queried for this patient: No Vital Signs: 10/26/24 11:52 Temperature 97.8 F Temperature Source Oral Pulse Rate [Left Radial] 82 Respiratory Rate 18 Blood Pressure [Left Arm] 150/79 H Blood Pressure Mean [Left Arm] 102 02 Sat by Pulse Oximetry 96
[2024-10-26 12:07] VITALS: BP 150/79; PULSE 82; RESP 18; TEMP 36.6
== END 2024-10-26 12:07 | disposition home or self-care (01) ==
PROVIDERS: Emergency Provider Nurse Practitioner; PCP Internal Medicine Adolescent Medicine
DX: J01.90 Acute sinusitis, unspecified (principal); R09.81 Nasal congestion; R05.9 Cough, unspecified; R53.83 Other fatigue
CPT/HCPCS: 99212; G0381

== ENCOUNTER 2025-02-05 09:48 | Outpatient (CLI) | payer MEDICARE, BC, SELFPAY ==
[2025-02-05 10:38] LABS: Anion Gap 14.3 mEq/L (5-15); Blood Urea Nitrogen 14 mg/dl (7-17); Calcium 9.8 mg/dl (8.4-10.2); Carbon Dioxide 24 mmol/L (22.0-30.0); Chloride 105 mmol/L (98-107); Estimated Glomerular Filt Rate 83 ml/min (>60); GFR (African American) 100 ML/MIN (>60); Glucose 230 mg/dl (74-100); Potassium 4.3 mmoL/L (3.5-5.1); Sodium 139 mmol/L (136-145)
== END 2025-02-05 23:59 | disposition home or self-care (01) ==
LOC: LAB 09:52
PROVIDERS: PCP Internal Medicine Adolescent Medicine; Visit Provider Internal Medicine Adolescent Medicine
DX: E11.9 Type 2 diabetes mellitus without complications (principal)
CPT/HCPCS: 36415; 80048; 83036

== ENCOUNTER 2025-05-27 09:13 | Outpatient (CLI) | payer MEDICARE, BC, SELFPAY ==
--- OUTSIDE RECORDS SUMMARY | 2025-05-27 09:16 | XMS_ITS | Data Portability ---
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 Plan of Treatment Reminders Order Date Submit Date Provider Last Modified By Organization Details Last Modified Time Details Appointments None record ed. Lab None record ed. Referral None record ed. Procedures None record ed. Surgeries None record ed. Imaging None record ed. Medication Orders None record ed. Patient TargetsNo targets recorded. Patient Instructions Encounter Date Encounter Id Patient Instructions Last Modified By Organization Details Last Modified Time 07/24/2017 [id number] presbyopia: care instructions SAILAJA Not available 07/27/2017 21:39:32 astigmatism: car e instructions SAILAJA Not available 07/27/2017 21:41:38 nearsightedness (myopia): care instructions SAILAJA Not available 07/27/2017 21:41:40 type 2 diabetes: care instructions SAILAJA Not available 07/27/2017 21:43:00 MR with +2.50 NL per request dkielar Not available 07/24/2017 14:05:07 recheck 1 yr dkielar Not available 04/2017 14:05:11 07/25/2018 [id number] presbyopia: care instructions dkielar Not available 07/25/2018 09:53:27 astigmatism: car e instructions dkielar Not available 07/25/2018 09:53:27 nearsightedness (myopia): care instructions dkielar Not available 07/25/2018 09:53:27 type 2 diabetes: care instructions dkielar Not available 07/25/2018 09:53:27 learning about vitreous detachment dkielar Not available 07/25/2018 09:53:27 stable exam rech km 1 yr no change in glasses recommended at this time dkielar Not available 07/25/2018 09:52:36 Reason for Referral None Reported. Problems Name Problem SNOMED Code Status Onset Date Resolution Date Notes Provider Name and Address Organization Details Recorded Time Diabetes mellitus 33783591 [facility] 13:[facility]:20 Hypertensive disorder 85859116 Active 2016 [facility] 13:32:28 Type 2 diabetes mellitus without complication 696117229 Active 2016 BRANDI BUNCH MD [address] [place] [address], [phone], [facility] 7 14:04:53 Myopia 98824398 Active 2016 BRANDI BUNCH MD [address] [place] [address], [phone], [facility] 7 14:04:53 Regular astigmatism 82861498 Active 2016 BRANDI BUNCH MD [address] [place] [address], [phone], [facility] 7 14:04:54 Presbyopia 54839467 Active 2016 BRANDI BUNCH MD [address] [place] [address], [phone], [facility] 7 14:04:55 Posterior vitreous detachment 271352364 Active 2017 BRANDI BUNCH MD [address] [place] [address], [phone], [facility] 8 09:52:14 Problem Notes None recorded. Procedures Surgical History Date Name Laterality Status Provider Name and Address Organization Details Recorded Time Refraction completed BRANDI BUNCH MD [address] [place] [address], [phone], [facility] 07/24/2017 14:00:59 Appendectomy completed Kasey Alaniz [facility] 07/24/2017 13:34:27 Imaging Results None recorded. Procedure Notes None recorded. Medical Equipment None Reported. Allergies No known drug allergies Medications Name Sig Start Date Stop Date Status Note LastModified by Organization Details LastModified Time trandolapr il-verapam il active Not Available Not Available Not Available Janumet active Not Available Not Avail able Not Available Vitals None Recorded Social History Question Answer Notes LastModified by Organizat ion Details LastModified Time Tobacco Smoking Status Never Smoker Kasey Kelleyering [facility] 07/24/2017 13:33:36 What Was The Date Of Your Most Recent Tobacco Screening? 07/25/2018 Information n ot available 01/05/2020 Sex: Unknown Functional Status None recorded. Mental Status None recorded. Family History Relationship Description Onset Age of this Age Resolved Age Notes LastModified by Organization Details LastModified Time Sister Cataract jdoering Not available 07/24/2017 13:32:55 Sister Heart disease jdoering Not available 2016 13:33:19 Father Heart disease jdoering Not available 2016 13:33:19 Paternal Aunt Glaucoma dkielar Not ashvin ilable 07/24/2017 13:58:12 Medical History Condition Response Diabetes Y Glasses/Contacts Y Gynecological HistoryNo gynecological history recorded. Obstetrics History GPAL:G 0 P 0 0 0 0 Past Encounters Encounter ID Performer Location Encounter Start Date Encounter Closed Date Diagnosis/Indication Diagnosis SNOMED-CT Code Diagnosis ICD10 Code Diagnosis Note [id number] BRANDI BUNCH MD [facility] [address] [place], [place] [phone] 07/24/2017 13:05:01 07/26/2017 17:07:11 Type 2 diabetes mellitus without complication 539857532 E11.9 no retinopath y seen ou Myopia 03211443 H52.13 Regular astigmatism 6890 5002 H52.223 Presbyopia 20378696 H52. 4 [id number] BRANDI BUNCH MD [facility] [address] [place]INEZ,[address] [place] [phone] 07/25/2018 08:45:11 07/28/2018 08:42:43 Type 2 diabetes mellitus without complication 595428122 E11.9 no retinopath y seen ou Posterior vitreous detachment 639629302 H43.813 Myopia 49653735 H52.13 Regular astigmatism 6890 5002 H52.223 Presbyopia 78979869 H52. 4 Health Concerns Section Related Observation LastModified by Organization Detai ls LastModified Time None Recorded Concern Status LastModified by Organization Details LastModified Time None Recorded Advance Directives Directive None Recorded Payers Insurance Date Sequence Insurance Name Policy Number Policy Allen Covered Member ID Allen Member ID Guarantor Name 10/12/2020 1 [place] [id number] Ashlyn Ng [id number] Ashlyn Ng Notes Date Note Type Note Provider Name and Address Organization Details Recorded Time 07/24/2017 text/html Pt co ou feel tired and dry past several years, seems to be getting worse. Has not tried to use gtts to help. Trouble focusing from nva to dva. NIDDM doesnt ck bg at home ~~ Dr. 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 Feels like a film over her eyes at times. Eyes are very dry, doesnt use any drops. gtts:none pt does no check BG levels, a1c 6.9,type 2 DM x 4+yrs., Dr. Chiquita BUNCH MD [address] [place] [address], [phone], [facility] 07/25/2018 09:53:31 OBGyn Episode No OBEpisode recorded.
--- OUTSIDE RECORDS SUMMARY | 2025-05-27 09:17 | XMS_ITS | Clinical Summary ---
Author Organization [facility] Address [address] [place] [address] Phone Care Team Providers Care [employer] Name Role Phone Sumanth Juarez Primary Care Provider Unavail able Social History Tobacco Use Types Packs/Day Years Used Date Smoking Tobacco: Never Assessed Comments Unknown Sex and Gender Information Value Date Recorded Sex Assigned at Not on file Legal Sex Female 4:50 AM EDT Gender Identity Not on file Sexual Orientation Not on file Plan of Treatment Health Maintenance Due Date Last Done Comments Annual Wellness Exam 1957 Hepatitis C Screening 1972 DTaP/TDaP/Td (1 - Tdap) 1973 Cologuard 1999 Colon Cancer Screening 1999 Colonoscopy 1999 FIT 1999 Sigmoidoscopy 1999 Virtual Colonography 1999 Pneumococcal Vaccine 50+ (1 of 1 - PCV) 2004 Zoster (1 of 2) 2004 Bone Density Screening 2019 COVID-19 Vaccine (1 - 2023-2 5 season) 2024 Influenza Vaccine (#1) 2025 Hepatitis B Vaccine Aged Out No longe r eligible based on patient's age to complete this topic Meningococcal B Vaccine Aged Out No l onger eligible based on patient's age to complete this topic Care Teams [employer] Relationship Specialty Start Date End Date Sumanth Juarez [address] [facility] [address] [place] [address] PCP - General Internal Medicine-Adolescent Medicine 09/02/12
--- OUTSIDE RECORDS SUMMARY | 2025-05-27 09:17 | XMS_ITS | Encounter Summary ---
Author Organization Healthcare Address [address] [place] [address] Care Team Providers Care Laborer [employer] Name Role Phone Eitan Patel MD Primary Care Provider + [phone] Encounter Details Date Type Department Care Team (Late st Contact Info) Description 03/05/2023 Orders Only External Location [address] [place] [address] Pam Whatley, PARK MANAGER [address] [place], [place] [id number] Social History Tobacco Use Types Packs/Day Years Used Date Smoking Tobacco: Never Assessed Comments Unknown Sex and Gender Information Value Date Recorded Sex Assigned at Not on file Legal Sex Female 8:32 PM EDT Gender Identity Not on file Sexual Orientation Not on file documented as of this encounter Plan of Treatment Not on file documented as of this encounter Procedures Procedure Name Priority Date/Time Associated Diagnosis Comments XR OUTSIDE IMAGES 03/05/2023 9:57 AM EDT documented in this encounter Results * XR OUTSIDE IMAGES (03/05/2023 9:57 AM EDT) Anatomical Region Laterality Modality Radiographic Yvette ging 03/05/2023 9:57 AM EDT us Pam S Chacorta PARK MANAGER IMG XR PROCEDURES Final Resul t documented in this encounter Visit Diagnoses Not on filedocumented in this encounter Care Teams Laborer [employer] Relationship Specialty Start Date End Date Eitan Patel MD [address] [place] [address] PCP - General 03/31/21 documented as of this encounter
--- OUTSIDE RECORDS SUMMARY | 2025-05-27 09:17 | XMS_ITS | Encounter Summary ---
Author Organization Healthcare Address [address] [place] [address] Care Team Providers Care Collar Starcher Name Role Phone Eitan Patel MD Primary Care Provider + [phone] Encounter Details Date Type Department Care Team (Late st Contact Info) Description 02/22/2016 [facility] OTTR Encounter Historical OTTR [address] [place] [address] Iveth Arzola, RN [facility] [address] [place] [address] Social History Tobacco Use Types Packs/Day Years Used Date Smoking Tobacco: Never Assessed Comments Unknown Sex and Gender Information Value Date Recorded Sex Assigned at Not on file Legal Sex Female 8:32 PM EDT Gender Identity Not on file Sexual Orientation Not on file documented as of this encounter Miscellaneous Notes * Progress Notes - Iveth Arzola RN - 02/22/2016 6:51 PM EDT Pt. seen in clinic today by Dr. Conner; PRN f/u only. * Progress Notes - Naya Sung - 02/01/2016 10:50 AM EDT See MD note in [facility] for full plan of care. Discharge today. RTC 3 weeks * Progress Notes - Iveth Arzola RN - 02/01/2016 9:59 AM EDT Received call from floor to schedule pt. to see Dr. Conner 02/21. Scheduled for 11am; told Elisa Peralta'dcall pt. if time needs to be changed. Sending note to CB asking for best time. * Progress Notes - Iveth Arzola RN - 01/20/2016 8:42 PM EST Received negative urine culture result; saved to All Docs. Pt. notified of new OR date; she confirmed understanding. * Progress Notes - Iveth Arzola RN - 01/16/2016 12:09 PM EST Pt. called back; Dr. Patel's office says she is cleared to have surgery tomorrow based on UA. Asked for copy to be faxed and for culture report to be faxed when resulted. UA result saved to All Docs. Pt. has now made plans for tomorrow and is not available for procedure; says any day next week ok.R/s to 01/25 tentatively per CB. Will notify pt. when UA/UCX results confirmed. * Progress Notes - Iveth Arzola RN - 01/16/2016 10:21 AM EST Received call from pt. that she has been recently treated for a UTI; finished nitrofurantoin Saturday, 02/10, but is still symptomatic. Per Dr. Conner, procedure for tomorrow to be cancelled until UTIresolved. Notified pt. She will have urine culture today locally and update me. Emailed OR scheduling, pre-op and RG to notify. * Progress Notes - ProviderMarisela MD - 12/30/2015 11:04 AM EST Per Kathryn reid/ [place] [phone] DOS 01/17/2016 OP obs cpt 23597 lap cholecystectomy, NPR. Notified [facility] via email. * Progress Notes - Iveth Arzola RN - 12/29/2015 11:30 AM EST Pt. seen in surgical clinic yesterday by Dr. Conner. She will have lap vs. open cholecystectomy 01/17/16, using CPT 90097. Dx cholelithiasis w/o cholecystitis, w/ obstruction, ICD10 k80.21. Sent to [facility] w/ binder; case posted to PIC. Given to for precert documentation. * Progress Notes - Iveth Arzola RN - 12/22/2015 10:57 AM EST Pt. has large gallstone, not concerning for cancer per Dr. Conner. Called to let her know and ask if she'd like to come back to see Dr. Conner for pre-op cholecystectomy consult. Pt. says she was told there's blood supply to the mass and this was worrisome to her. Per RG, specimen will be sent for pathology once removed, but he suspects outside report was incorrect. [facility] report does not mention anyblood supply to what it definitively calls a gallstone. Ms. Ng asked that I send the report toDr. Patel; also made surgeon and POAC appts for next Saturday, 12/28. * Progress Notes - Iveth Arzola RN - 12/16/2015 1:[address] should have been ordered as liver protocol, abdomen w/ contrast. Withdrew precert request for abd/pelvis and submitted new for abdomen w/ contrast. Approved w/ ID #[id number] via [facility] specialty health provider portal. Cancelled abd/pelvis order and submitted correct order. Notified Hayley in radiology. * Progress Notes - Iveth Arzola RN - 12/09/2015 12:[address] abdomen/pelvis 12/19/15 9:20am, arrive @ 8:20. NPO 4 hrs @ [facility]; pt. notified and confirmed understanding. Will mail appt. reminder. * Progress Notes - Iveth Arzola RN - 12/08/2015 5:58 PM EST Pt. seen in surgical clinic yesterday by Dr. Conner for ICE. Needs CT abdomen and pelvis w/ contrast. RG will then review and decide whether Ms. Ng's case should be discussed in tumor board. Auth #[id number] valid 12/08-01/06/16 per Clare Stark w/ [facility]. * Progress Notes - Shauna Alegria E - 12/07/2015 8:48 AM EST Ms Ng called - tentative about the travel conditions requests if needed to reschedule for nextweek. Holding 2:40pm slot on 12/14 for her just in case. She is to see Dr Patel this morning and will determine then - she will call to confirm either way. * Progress Notes - Shauna Alegria E - 12/07/2015 8:29 AM EST CD images received - downloaded to PACS. * Progress Notes - Shauna Alegria - 12/06/2015 8:22 AM EST Spoke to ms Ng - confirmed appt for tomorrow and agenda in labs and meeting w surgeon. She hasnot yet received her packet but will call to confirm recepit or get directions. She is bringing records with her including cd disc. * Progress Notes - Shauna Alegria E - 12/02/2015 10:33 AM EST Phone referral from Dr Patel's office on 12/01/15 - Ms Berenice reid liver lesions incidentally found on radiology studies for other abdominal procedures. Scheduled ICe for 12/07/15 at 1:30pm. Mailed ICE paperwork usps priority: [phone]. Faxed request for cd images to [facility] fed ex for delivery Saturday AM. documented in this encounter Plan of Treatment Not on file documented as of this encounter Procedures Procedure Name Priority Date/Time Associated Diagnosis Comments OTTR LAB RESULTS (MANUAL) Routine 02/22/2016 11:25 AM EDT OTTR LAB RESULTS (MANUAL) Routine 02/01/2016 6:35 AM EDT OTTR LAB RESULTS (MANUAL) Routine 01/31/2016 4:37 AM EDT OTTR LAB RESULTS (MANUAL) Routine 01/29/2016 5:34 AM EDT OTTR LAB RESULTS (MANUAL) Routine 01/28/2016 3:46 AM EST OTTR LAB RESULTS (MANUAL) Routine 01/27/2016 2:22 AM EST OTTR LAB RESULTS (MANUAL) Routine 12/07/2015 1:30 PM EST OTTR LAB RESULTS (MANUAL) Routine 11/30/2015 10:11 AM EST documented in this encounter Results * OTTR LAB RESULTS (MANUAL) (02/22/2016 11:25 AM EDT) External Estimated GFR 84.52 EXTERNAL LAB 02/22/2016 11:2 5 AM EDT Narrative EXTERNAL LAB - 02/22/2016 12:57 PM EDT Automated LAB Interface us Historical Provider MD LAB BLOOD ORDERABLES Tabatha l Result Performing Organization Address [facility] Co de Phone Number EXTERNAL LAB * OTTR LAB RESULTS (MANUAL) (02/01/2016 6:35 AM EDT) External Estimated GFR 96.45 EXTERNAL LAB 02/01/2016 6:35 AM EDT Narrative EXTERNAL LAB - 02/01/2016 7:27 AM EDT Automated LAB Interface us Historical Provider MD LAB BLOOD ORDERABLES Tabatha l Result Performing Organization Address [facility] Co de Phone Number EXTERNAL LAB * OTTR LAB RESULTS (MANUAL) (01/31/2016 4:37 AM EDT) External Estimated GFR 98.17 EXTERNAL LAB 01/31/2016 4:37 AM EDT Narrative EXTERNAL LAB - 01/31/2016 5:36 AM EDT Automated LAB Interface Historical Provider MD LAB BLOOD ORDERABLES Tabatha l Result Performing Organization Address [facility] Co de Phone Number EXTERNAL LAB * OTTR LAB RESULTS (MANUAL) (01/29/2016 5:34 AM EDT) External Estimated GFR 109.77 EXTERNAL LAB 01/29/2016 5:34 AM EDT Narrative EXTERNAL LAB - 01/29/2016 6:34 AM EDT Automated LAB Interface us Historical Provider MD LAB BLOOD ORDERABLES Tabatha l Result Performing Organization Address City/[facility]/ZIP Co de Phone Number EXTERNAL LAB * OTTR LAB RESULTS (MANUAL) (01/28/2016 3:46 AM EST) External Estimated GFR 80.73 EXTERNAL LAB 01/28/2016 3:46 AM EST Narrative EXTERNAL LAB - 01/28/2016 4:50 AM EST Automated LAB Interface Historical Provider MD LAB BLOOD ORDERABLES Tabatha l Result EXTERNAL LAB * OTTR LAB RESULTS (MANUAL) (01/27/2016 2:22 AM EST) Pathologist [facility] External Estimated GFR 90.12 EXTERNAL LAB 01/27/2016 2:22 AM EST Narrative EXTERNAL LAB - 01/27/2016 4:11 AM EST Automated LAB Interface Historical Provider MD LAB BLOOD ORDERABLES Tabatha l Result Performing Organization Address City/[facility]/ZIP Co de Phone Number EXTERNAL LAB * OTTR LAB RESULTS (MANUAL) (12/07/2015 1:30 PM EST) Pathologist [facility] External Estimated GFR 71.30 EXTERNAL LAB 12/07/2015 1:30 PM EST Narrative EXTERNAL LAB - 12/07/2015 2:30 PM EST Automated LAB Interface Historical Provider MD LAB BLOOD ORDERABLES Tabatha l Result Performing Organization Address [facility]/ZIP Co de Phone Number EXTERNAL LAB * OTTR LAB RESULTS (MANUAL) (11/30/2015 10:11 AM EST) Pathologist [facility] External WBC 13.5 k/uL EXTERNAL LAB External Hemoglobin (Hgb) 13.4 gm/dL EXTERNAL LAB External Hematocrit (Hct) 42.4 % EXTERNAL LAB External Platelet Count (Plt) 320 k/uL EXTERNAL LAB External Glucose 188 mg/dL EXTERNAL LAB External BUN 24 mg/dL EXTERNAL LAB External Creatinine Blood 1.3 mg/dL EXTERNAL LAB External Sodium (Na) 139 mmol/L EXTERNAL LAB External Potassium (K) 4.4 mmol/L EXTERNAL LAB External Chloride (Cl) 102 mmol/L EXTERNAL LAB External Carbon Dioxide (CO2) 27 mmol/L EXTERNAL LAB External Calcium (Ca) 9.7 mg/dL EXTERNAL LAB External AST (SGOT) 14 units/L EXTERNAL LAB External ALT (SGPT) 23 units/L EXTERNAL LAB External Alkaline Phosphatase 88 U/L EXTERNAL LAB External Bilirubin Total 0.5 mg/dL EXTERNAL LAB External Total Protein 8.3 g/dL EXTERNAL LAB External Albumin 3.8 g/dL EXTERNAL LAB External Estimated GFR 44.26 EXTERNAL LAB 11/30/2015 10:1 1 AM EST Narrative EXTERNAL LAB - 12/02/2015 10:15 AM EST [facility] us Historical Provider LAB BLOOD ORDERABLES Tabatha jang Result EXTERNAL LAB documented in this encounter Visit Diagnoses Not on filedocumented in this encounter Care Teams Collar Starcher Relationship Specialty Start Date End Date Eitan Patel MD [address] [place] [address] PCP - General 03/31/21 documented as of this encounter
--- OUTSIDE RECORDS SUMMARY | 2025-05-27 09:17 | XMS_ITS | Encounter Summary ---
Author Organization Healthcare Address [address] [place] [address] Care Team Providers Care Change Management Facilitator Name Role Phone Eitan Patel MD Primary Care Provider [phone] Encounter Details Date Type Department Care Team (Late st Contact Info) Description 03/12/2023 Orders Only External Location [address] [place] [address] Pam Whatley, TUCK POINTER HELPER [address] [place] [address] Social History Tobacco Use Types Packs/Day Years [...] Procedure Name Priority Date/Time Associated Diagnosis Comments MR MSK OUTSIDE IMAGES 03/12/2023 4:53 PM EDT documented in this encounter Results * MR MSK OUTSIDE IMAGES (03/12/2023 4:53 PM EDT) Anatomical Region Laterality Modality Magnetic Resonan ce 03/12/2023 4:53 PM EDT us Pam Whatley TUCK POINTER HELPER IMG MRI PROCEDURES Final Resu lt documented in this encounter Visit Diagnoses Not on filedocumented in this encounter Care Teams Change Management Facilitator Relationship Specialty Start Date End Date Eitan Patel MD [address] [place] [address] PCP - General 03/31/21 documented as of this encounter
--- OUTSIDE RECORDS SUMMARY | 2025-05-27 09:17 | XMS_ITS | Clinical Summary ---
Author Organization [facility] Address [address] [id number] Care Team Providers Care Scow Derrick Operator Name Role Phone Eitan Patel MD Primary Care Provider + [phone] Allergies No known active allergies Medications glimepiride (Amaryl) 4 MG tablet Take 1 tablet (4 mg) by mouth 2 (two) times a day with meals. 3 Active metFORMIN (Glucophage) 1000 MG tablet Take 1 tablet (1,000 mg) by mouth 1 (one) time each day with breakfast. 3 Active Ozempic, 0.25 or 0.5 MG/DOSE, 2 MG/1.5ML solution pen-injector inj. pen INJECT 0.5 MG SUBCUTANEOUSLY ONCE A WEEK 3 Active atorvastatin (Lipitor) 40 MG tablet Take 1 tablet (40 mg) by mouth 1 (one) time each day. 3 Active trandolapril (Mavik) 4 MG tablet Take 1 tablet (4 mg) by mouth 1 (one) time each day. 3 Active verapamil ER (Veralan PM) 240 MG 24 hr capsule Take 1 capsule (240 mg) by mouth 1 (one) time each day. 3 Active HYDROcodone-ac etaminophen (Black) 5-325 MG tablet Take 1 tablet (5 mg of hydrocodone) by mouth every 4 (four) hours if needed for moderate pain. 40 tablet 3 Active ibuprofen 600 MG tablet Take 1 tablet (600 mg) by mouth every 6 (six) hours if needed for mild pain. 30 tablet 3 Active ondansetron (Zofran) 4 MG tablet Take 1 tablet (4 mg) by mouth every 8 (eight) hours if needed for nausea or vomiting. 20 tablet 3 Active Active Problems Problem Noted Date Diagnosed Date Pre-op testing 07/26/2023 Rotator cuff arthropathy of right shoulder 07/26 Family History Medical History Relation Name Comments Anesthesia problems Neg Hx Malig Hypertension Neg Hx Malig Hyperthermia Neg Hx Social History Tobacco Use Types Packs/Day Years Used Date Smoking Tobacco: Never Smokeless Tobacco: Never Tobacco Cessation:Counseling Given: Not Answered Alcohol Use Standard Drinks/Week Comments Not Currently 0 (1 standard drink = 0.6 oz pur e alcohol) Comments Unknown Sex and Gender Information Value Date Recorded Sex Assigned at Not on file Legal Sex Female 8:32 PM EDT Gender Identity Not on file Sexual Orientation Not on file Last Filed Vital Signs Vital Sign Reading Time Taken Comments Blood Pressure 184/100 01/21/2024 9:15 AM EST Pulse 57 10/14/2023 1:15 PM EST Temperature 36.4 C (97.5 F) 10/14/2023 1:30 PM EST Respiratory Rate 20 10/14/2023 1:15 PM EST Oxygen Saturation 94% 10/14/2023 1:15 PM EST Inhaled Oxygen Concentration - - Weight 90.7 kg (200 lb) 01/21/2024 9:15 AM EST Height 177.8 cm (5' 10 ) 01/21/2024 9:15 AM EST Body Mass Index 28.7 01/21/2024 9:15 AM EST Plan of Treatment Health Maintenance Due Date Last Done Comments [facility]-Bone Density Scan 1954 [facility]-Depression Screening 1954 [facility]-Hepatitis C Screening 1954 [facility]-Medicare Annual Wellness (AWV) 1954 [facility]-/Child/Adol SDOH Screenings 1954 [facility]- SDOH Screenings 1972 [facility]-Adult SDOH Screenings 1972 CT Colonography 1999 Colonoscopy 1999 FIT-DNA 1999 FIT 1999 FOBT 1999 Sigmoidoscopy 1999 [facility]-Colorectal Cancer Screening 1999 [facility]-Breast Cancer Screening 2004 [facility]-Zoster Vaccines (1 of 2) 2004 [facility]-IBNAU-16 Vaccine (4 - 2024- season) 2024 08/30/2021, 03/01/2021, 02/01/2021 [facility]-Influenza Vaccine (#1) 2025 09/09/2017 [facility]-DTaP,Tdap,and Td Vaccines (2 - Td or Tdap) 03/18/2029 03/18/2019 [facility]-RSV Vaccine: 60+ Years or (1 - 1-dose 75+ series) 2029 [facility]-Pneumococcal Vaccine: 50+ Years Completed 10/26/2020, 2019 [facility]-Obesity Intervention Completed 024, 11/26/2023, 10/22/2023, Additional history exists HPV Vaccines Aged Out No longer eligi ble based on patient's age to complete this topic [facility]-HIB Vaccines Aged Out No longer e ligible based on patient's age to complete this topic [facility]-Hepatitis A Vaccines Aged Out No longer eligible based on patient's age to complete this topic [facility]-IPV Vaccines Aged Out No longer e ligible based on patient's age to complete this topic [facility]-Rotavirus Vaccines Aged Out No lo nger eligible based on patient's age to complete this topic Medical Devices Implanted Type Area Remelter Device Identifier Shelf Expiration Date Model / Serial / Lot Post Perform Reversed Press-Fit Short 7mm - [id number] - [id number] Implanted:Qty: 1 on 10/14/2023 by Alonso Mcleod MD at [facility] Glenoid Right: Shoulder [employer] ([facility])-139 168 09/04/2028 [id number] / [id number] / Glenosphere Perform Reversed Standard 36mm - [id number] - [id number] Implanted:Qty: 1 on 10/14/2023 by Alonso Mcleod MD at [facility] Glenoid Right: Shoulder [employer] ([employer])-139 168 07/18/2028 [id number] / [id number] / Baseplate Perform Reversed Lateral Pls3/25mm - [id number] - [id number] Implanted:Qty: 1 on 10/14/2023 by Alonso Mcleod MD at [facility] Plate Right: Shoulder [employer] ([facility])-139 168 09/07/2028 [id number] / [id number] / Stem Humeral Perfrom Sz 2 Plus - [id number] - [id number] Implanted:Qty: 1 on 10/14/2023 by Alonso Mcleod MD at [facility] Stem Right: Shoulder [employer] ([facility]139 168 01/18/2028 [id number] / [id number] / Cement Palacos W/Gent - [id number] Implanted:10/14 by Alonso Mcleod MD at [facility] (Quantity not on file) [employer]-[id number] / / Cement Palacos W/Gent - [id number] Implanted:10/14 by Alonso Mcleod MD at [facility] (Quantity not on file) [employer]-[id number] / / Insert Perform Rvrsd Sz1/2 36mm/Pls 0mm Ret - [id number] - [id number] Implanted:Qty: 1 on 10/14/2023 by Alonso Mcleod MD at [facility] Right: Shoulder [employer] ([facility]139 168 06/10/2028 [id number] / [id number] / Screw Perform Reversed Peripheral 5x18mm - [id number] Implanted:Qty: 1 on 10/14/2023 by Alonso Mcleod MD at [facility] Right: Shoulder [employer] ([facility])-139 168 10/14/2024 [id number] / / Screw Perform Reversed Peripheral 5x30mm - [id number] Implanted:Qty: 1 on 10/14/2023 by Alonso Mcleod MD at [facility] Right: Shoulder [employer] ([facility])-139 168 10/14/2023 [id number] / / Screw Perform Reversed Peripheral 5x34mm - [id number] Implanted:Qty: 1 on 10/14/2023 by Alonso Mcleod MD at [facility] Right: Shoulder [employer] ([facility]139 168 10/14/2023 [id number] / / Insurance MEDICARE [facility] Care Teams Scow Derrick Operator Relationship Specialty Start Date End Date Eitan Patel MD [address] [place] [address] PCP - General 03/31/21
[2025-05-27 10:58] LABS: Anion Gap 16.8 mEq/L (5-15); Blood Urea Nitrogen 12 mg/dl (7-17); Calcium 10.0 mg/dl (8.4-10.2); Carbon Dioxide 27 mmol/L (22.0-30.0); Chloride 102 mmol/L (98-107); Creatinine,Serum 0.80 mg/dl (0.52-1.04); Estimated Glomerular Filt Rate 71 ml/min (>60); GFR (African American) 86 ML/MIN (>60); Glucose 155 mg/dl (74-100); Potassium 4.8 mmoL/L (3.5-5.1); Sodium 141 mmol/L (136-145)
[2025-05-27 11:48] LABS: Hemoglobin A1C 8.7 % (4.0-6.0)
== END 2025-05-27 23:59 | disposition home or self-care (01) ==
LOC: LAB 09:14
PROVIDERS: PCP Internal Medicine Adolescent Medicine; Visit Provider Internal Medicine Adolescent Medicine
DX: E11.9 Type 2 diabetes mellitus without complications (principal)
CPT/HCPCS: 36415; 80048; 83036

== ENCOUNTER 2025-09-16 08:56 | Outpatient (CLI) | payer MEDICARE, BC, SELFPAY ==
--- OUTSIDE RECORDS SUMMARY | 2025-09-16 09:03 | XMS_ITS | Encounter Summary ---
Author Organization Healthcare Address [address] [place] [address] Care Team Providers Care Commercial Designer Name Role Phone Eitan Patel MD Primary Care Provider + [phone] Encounter Details Date Type Department Care Team (Late st Contact Info) Description 03/05/2023 Orders Only External Location [address] [place] [address] Pam Whatley, PATROL POLICE LIEUTENANT [address] [place], [place] [id number] Social History Tobacco Use Types Packs/Day Years [...] 9:57 AM EDT us Pam S Chacorta PATROL POLICE LIEUTENANT IMG XR PROCEDURES Final Resul t documented in this encounter Visit Diagnoses Not on filedocumented in this encounter Care Teams Commercial Designer Relationship Specialty Start Date End Date Eitan Patel MD [address] [place] [address] PCP - General 03/31/21 documented as of this encounter
--- OUTSIDE RECORDS SUMMARY | 2025-09-16 09:04 | XMS_ITS | Encounter Summary ---
Author Organization Healthcare Address [address] [place] [address] Care Team Providers Care Clinical Cytopathologist Name Role Phone Eitan Patel MD Primary Care Provider + [phone] Encounter Details Date Type Department Care Team (Late st Contact Info) Description 02/22/2016 [facility] OTTR Encounter Historical OTTR [address] [place] [address] Iveth Arzola, RN [facility] [address] [place] [address] Social History Tobacco Use Types Packs/Day Years [...] 10:50 AM EDT See MD note in [facility] for full plan of care. [...] 11:04 AM EST Per Kathryn reid/ [place] [phone] DOS 01/17/2016 [place] obs cpt 22758 lap cholecystectomy, NPR. Notified [facility] via email. * Progress Notes - Iveth Arzola RN - 12/29/2015 11:30 AM EST Pt. seen in surgical clinic yesterday by Dr. Conner. She will have lap vs. open cholecystectomy 01/17/16, using CPT 60649. Dx cholelithiasis w/o cholecystitis, w/ obstruction, ICD10 [...] for abdomen w/ contrast. Approved w/ ID #[id number] via [facility] specialty health provider portal. Cancelled abd/pelvis order [...] should be discussed in tumor board. Auth #[id number] valid 12/08-01/06/16 per Clare Stark w/ [facility]. [...] 74. Faxed request for cd images to [facility] fed ex for delivery Saturday AM. [...] EDT Automated LAB Interface us Historical Provider LAB BLOOD ORDERABLES Final R esult Performing Organization Address [facility] de Phone Number EXTERNAL LAB * OTTR LAB RESULTS (MANUAL) (02/01/2016 6:35 AM EDT) External Estimated GFR 96.45 EXTERNAL LAB 02/01/2016 6:35 AM EDT Narrative EXTERNAL LAB - 02/01/2016 7:27 AM EDT Automated LAB Interface us Historical Provider LAB BLOOD ORDERABLES Final R esult Performing Organization Address [facility] de Phone Number EXTERNAL LAB * OTTR LAB RESULTS (MANUAL) (01/31/2016 4:37 AM EDT) External Estimated GFR 98.17 EXTERNAL LAB 01/31/2016 4:37 AM EDT Narrative EXTERNAL LAB - 01/31/2016 5:36 AM EDT Automated LAB Interface us Historical Provider LAB BLOOD ORDERABLES Final R esult Performing Organization Address [facility] de Phone Number EXTERNAL LAB * OTTR LAB RESULTS (MANUAL) (01/29/2016 5:34 AM EDT) External Estimated GFR 109.77 EXTERNAL LAB 01/29/2016 5:34 AM EDT Narrative EXTERNAL LAB - 01/29/2016 6:34 AM EDT Automated LAB Interface us Historical Provider LAB BLOOD ORDERABLES Final R esult Performing Organization Address [facility] Co de Phone Number EXTERNAL LAB * OTTR LAB RESULTS (MANUAL) (01/28/2016 3:46 AM EST) External Estimated GFR 80.73 EXTERNAL LAB 01/28/2016 3:46 AM EST Narrative EXTERNAL LAB - 01/28/2016 4:50 AM EST Automated LAB Interface us Historical Provider LAB BLOOD ORDERABLES Final R esult Performing Organization Address [facility]/ZIP Co de Phone Number EXTERNAL LAB * OTTR LAB RESULTS (MANUAL) (01/27/2016 2:22 AM EST) Pathologist [facility] External Estimated GFR 90.12 EXTERNAL LAB 01/27/2016 2:22 AM EST Narrative EXTERNAL LAB - 01/27/2016 4:11 AM EST Automated LAB Interface Historical Provider LAB BLOOD ORDERABLES Final R esult Performing Organization Address City/[facility]/ZIP Co de Phone Number EXTERNAL LAB * OTTR LAB RESULTS (MANUAL) (12/07/2015 1:30 PM EST) Pathologist [facility] External Estimated GFR 71.30 EXTERNAL LAB 12/07/2015 1:30 PM EST Narrative EXTERNAL LAB - 12/07/2015 2:30 PM EST Automated LAB Interface Historical Provider LAB BLOOD ORDERABLES Final R esult Performing Organization Address [facility]/ZIP Co de Phone Number EXTERNAL LAB * OTTR LAB RESULTS (MANUAL) (11/30/2015 10:11 AM EST) Pathologist [facility] External WBC 13.5 k/uL EXTERNAL LAB External [...] EXTERNAL LAB - 12/02/2015 10:15 AM EST [facility] us Historical Provider LAB BLOOD ORDERABLES Final R esult EXTERNAL LAB documented in this encounter Visit Diagnoses Not on filedocumented in this encounter Care Teams Clinical Cytopathologist Relationship Specialty Start Date End Date Eitan Patel MD [address] [place] [address] PCP - General 03/31/21 documented as of this encounter
--- OUTSIDE RECORDS SUMMARY | 2025-09-16 09:04 | XMS_ITS | Clinical Summary ---
Author Organization [facility] Address [address] [id number] Care Team Providers Care Pull Socket Assembler Name Role Phone Eitan Patel MD Primary Care Provider + [phone] Allergies No known active allergies Medications glimepiride [...] time each day. 3 Active HYDROcodone-ac etaminophen ([place]) 5-325 MG tablet Take 1 tablet (5 [...] Screening 1954 UKY-Medicare Annual Wellness (AWV) 1954 UKY-Infant/Child/Adol SDOH Screenings 1954 UKY- SDOH Screenings 1972 UKY-Adult SDOH Screenings 1972 CT Colonography 1999 Colonoscopy 1999 FIT-DNA 1999 FIT 1999 FOBT 1999 Sigmoidoscopy 1999 UKY-Colorectal Cancer Screening 1999 UKY-Breast Cancer Screening 2004 UKY-Zoster Vaccines (1 of 2) 2004 EUI-KWWIH-37 Vaccine (4 - 2025-26 season) 2025 08/30/2021, 03/01/2021, 02/01/2021 UKY-Influenza Vaccine (#1) 2025 [...] this topic Medical Devices Implanted Type Area Classroom Instructional Aide Device Identifier Shelf Expiration Date Model / Serial / Lot Post Perform Reversed Press-Fit Short 7mm - [id number] - [id number] Implanted:Qty: 1 on 10/14/2023 by Alonso Mcleod MD at [facility] Glenoid Right: Shoulder [employer] ([facility])-139 168 09/04/2028 [id number] / [id number] / Glenosphere Perform Reversed Standard 36mm - [id number] - [id number] Implanted:Qty: 1 on 10/14/2023 by Alonso Mcleod MD at [facility] [employer] Right: Shoulder [employer] ([facility])-139 168 07/18/2028 [id number] / [id number] / Baseplate Perform Reversed Lateral Pls3/25mm - [id number] - [id number] Implanted:Qty: 1 on 10/14/2023 by Alonso Mcleod MD at [facility] Plate Right: Shoulder [employer] ([facility])-139 168 09/07/2028 [id number] / [id number] / Stem Humeral Perfrom Sz 2 Plus - [id number] - [id number] Implanted:Qty: 1 on 10/14/2023 by Alonso Mcleod MD at [facility] Stem Right: Shoulder [employer] ([facility]139 168 01/18/2028 [id number] / [id number] / Cement Palacos W/Gent - [id number] Implanted:10/14 by Alonso Mcleod MD at [facility] (Quantity not on file) [employer]-[id number] / / Cement Palacos W/Gent - [id number] Implanted:10/14 by Alonso Mcleod MD at [facility] (Quantity not on file) [employer]-[id number] / / Insert Perform Rvrsd Sz1/2 36mm/Pls 0mm Ret - [id number] - [id number] Implanted:Qty: 1 on 10/14/2023 by Alonso Mcleod MD at [facility] Right: Shoulder [employer] ([facility]139 168 06/10/2028 [id number] / [id number] / Screw Perform Reversed Peripheral 5x18mm - [id number] Implanted:Qty: 1 on 10/14/2023 by Alonso Mcleod MD at [facility] Right: Shoulder [employer] ([facility]139 168 10/14/2024 [id number] / / Screw Perform Reversed Peripheral 5x30mm - [id number] Implanted:Qty: 1 on 10/14/2023 by Alonso Mcleod MD at [facility] Right: Shoulder [employer] ([facility]139 168 10/14/2023 [id number] / / Screw Perform Reversed Peripheral 5x34mm - [id number] Implanted:Qty: 1 on 10/14/2023 by Alonso Mcleod MD at [facility] Right: Shoulder [employer] ([facility]139 168 10/14/2023 [id number] / / Insurance MEDICARE [facility] Care Teams Pull Socket Assembler Relationship Specialty Start Date End Date Eitan Patle MD [address] [place] [address] PCP - General 03/31/21
--- OUTSIDE RECORDS SUMMARY | 2025-09-16 09:04 | XMS_ITS | Encounter Summary ---
Author Organization [facility] Address [address] [place] [address] Care Team Providers Care Slot Manager Name Role Phone Eitan Patel MD Primary Care Provider [phone] Encounter Details Date Type Department Care Team (Late st Contact Info) Description 03/12/2023 Orders Only External Location [address] [place] [address] Pam Whatley, MERCHANDISE COORDINATOR [address] [place] [address] Social History Tobacco Use Types [...] 03/12/2023 4:53 PM EDT us Pam Whatley MERCHANDISE COORDINATOR IMG MRI PROCEDURES Final Resu lt documented in this encounter Visit Diagnoses Not on filedocumented in this encounter Care Teams Slot Manager Relationship Specialty Start Date End Date Eitan Patel MD [address] [place] [address] PCP - General 03/31/21 documented as of this encounter
--- OUTSIDE RECORDS SUMMARY | 2025-09-16 09:04 | XMS_ITS | Clinical Summary ---
Author Organization [facility] Address [address] [place] [address] Phone Care Team Providers Care Maintenance Electrician Name Role Phone Sumanth Juarez Primary Care [...] Density Screening 2019 COVID-19 Vaccine (1 - 2024-2 6 season) 2025 Influenza Vaccine (#1) 2025 Hepatitis B Vaccine Aged Out No longe r eligible based on patient's age to complete this topic Meningococcal B Vaccine Aged Out No l onger eligible based on patient's age to complete this topic Care Teams Maintenance Electrician Relationship Specialty Start Date End Date Sumanth Juarez [address] [facility] [address] [place] [address] PCP - General Internal Medicine-Adolescent Medicine 09/02/12
[2025-09-16 09:32] LABS: Hematocrit 41.7 % (37.0-47.0); Hemoglobin 13.2 g/dL (12.2-16.2); Immature Granulocytes % 0.4 %; Mean Corpuscular HGB Conc 31.7 g/dL (31.8-35.4); Mean Corpuscular Hemoglobin 29.9 pg (27.0-31.2); Mean Corpuscular Volume 94.3 fl (81-99); Nucleated Red Blood Cells % 0 %; Platelet Count 332 K/mm3 (142-424); Red Blood Count 4.42 M/mm3 (4.20-5.40); Red Cell Distribution Width-SD 44.1 fL; White Blood Count 10.3 K/mm3 (4.8-10.8)
[2025-09-16 10:25] LABS: Alanine Aminotransferase 23 U/L (12-78); Albumin Level 3.3 g/dl (3.5-5.0); Albumin/Globulin Ratio 0.8 (1.1-1.8); Alkaline Phosphatase 117 U/L (38-126); Anion Gap 16.3 mEq/L (5-15); Aspartate Amino Transferase 24 U/L (14-36); Bilirubin,Total 1.1 mg/dl (0.2-1.3); Blood Urea Nitrogen 16 mg/dl (7-17); Calcium 9.8 mg/dl (8.4-10.2); Carbon Dioxide 25 mmol/L (22.0-30.0); Chloride 100 mmol/L (98-107); Cholesterol 102 mg/dl (140-200); Creatinine,Serum 0.90 mg/dl (0.52-1.04); Estimated Glomerular Filt Rate 62 ml/min (>60); GFR (African American) 75 ML/MIN (>60); Globulin 4.2 g/dL (1.3-3.2); Glucose 260 mg/dl (74-100); HDL Cholesterol 40 mg/dl (40-60); Magnesium 1.5 mg/dl (1.6-2.3); Potassium 4.3 mmoL/L (3.5-5.1); Sodium 137 mmol/L (136-145); Total Protein,Serum 7.5 g/dl (6.3-8.2); Triglycerides 157 mg/dl (30-150)
== END 2025-09-16 23:59 | disposition home or self-care (01) ==
LOC: LAB 08:57
PROVIDERS: PCP Internal Medicine Adolescent Medicine; Visit Provider Internal Medicine Adolescent Medicine
DX: E11.9 Type 2 diabetes mellitus without complications (principal); E78.5 Hyperlipidemia, unspecified
CPT/HCPCS: 36415; 80053; 80061; 83735; 85025

== ENCOUNTER 2025-09-20 11:19 | Outpatient (CLI) | payer MEDICARE, BC, SELFPAY ==
--- OUTSIDE RECORDS SUMMARY | 2025-09-20 11:24 | XMS_ITS | Encounter Summary ---
Author Organization [facility] Address [address] [place] [address] Care Team Providers Care Director Of Radiology Name Role Phone Eitan Patel MD Primary Care Provider + [phone] Encounter Details Date Type Department Care Team (Late st Contact Info) Description 02/22/2016 Legacy OTTR Encounter Historical OTTR [address] [place] [address] Iveth Arzola, RN [facility] [address] [place] [address] Social History Tobacco Use Types Packs/Day Years [...] 10:50 AM EDT See MD note in [facility] for full plan of care. Discharge today. [...] 11:04 AM EST Per Kathryn reid/ [place] [phone] DOS 01/17/2016 [place] obs cpt 95018 lap cholecystectomy, NPR. Notified [facility] via email. * Progress Notes - Iveth Arzola RN - 12/29/2015 11:30 AM EST Pt. seen in surgical clinic yesterday by Dr. Conner. She will have lap vs. open cholecystectomy 01/17/16, using CPT 55951. Dx cholelithiasis w/o cholecystitis, w/ obstruction, ICD10 [...] for abdomen w/ contrast. Approved w/ ID #[id number] via [facility] specialty health provider portal. Cancelled abd/pelvis order [...] should be discussed in tumor board. Auth #[id number] valid 12/08-01/06/16 per Clare Stark w/ [facility]. [...] 74. Faxed request for cd images to [facility] fed ex for delivery Saturday AM. documented [...] ORDERABLES Final R esult Performing Organization Address [facility] de Phone Number EXTERNAL LAB * OTTR LAB RESULTS (MANUAL) (02/01/2016 6:35 AM EDT) External Estimated GFR 96.45 EXTERNAL LAB 02/01/2016 6:35 AM EDT Narrative EXTERNAL LAB - 02/01/2016 7:27 AM EDT Automated LAB Interface us Historical Provider LAB BLOOD ORDERABLES Final R esult Performing Organization Address [facility] de Phone Number EXTERNAL LAB * OTTR LAB RESULTS (MANUAL) (01/31/2016 4:37 AM EDT) External Estimated GFR 98.17 EXTERNAL LAB 01/31/2016 4:37 AM EDT Narrative EXTERNAL LAB - 01/31/2016 5:36 AM EDT Automated LAB Interface us Historical Provider LAB BLOOD ORDERABLES Final R esult Performing Organization Address [facility] de Phone Number EXTERNAL LAB * OTTR LAB RESULTS (MANUAL) (01/29/2016 5:34 AM EDT) External Estimated GFR 109.77 EXTERNAL LAB 01/29/2016 5:34 AM EDT Narrative EXTERNAL LAB - 01/29/2016 6:34 AM EDT Automated LAB Interface us Historical Provider LAB BLOOD ORDERABLES Final R esult Performing Organization Address [facility] Co de Phone Number EXTERNAL LAB * OTTR LAB RESULTS (MANUAL) (01/28/2016 3:46 AM EST) External Estimated GFR 80.73 EXTERNAL LAB 01/28/2016 3:46 AM EST Narrative EXTERNAL LAB - 01/28/2016 4:50 AM EST Automated LAB Interface us Historical Provider LAB BLOOD ORDERABLES Final R esult Performing Organization Address City/[facility]/ZIP Co de Phone Number EXTERNAL LAB * OTTR LAB RESULTS (MANUAL) (01/27/2016 2:22 AM EST) Pathologist [facility] External Estimated GFR 90.12 EXTERNAL LAB 01/27/2016 2:22 AM EST Narrative EXTERNAL LAB - 01/27/2016 4:11 AM EST Automated LAB Interface Historical Provider LAB BLOOD ORDERABLES Final R esult Performing Organization Address City/[facility]/ZIP Co de Phone Number EXTERNAL LAB * OTTR LAB RESULTS (MANUAL) (12/07/2015 1:30 PM EST) Pathologist [facility] External Estimated GFR 71.30 EXTERNAL LAB 12/07/2015 1:30 PM EST Narrative EXTERNAL LAB - 12/07/2015 2:30 PM EST Automated LAB Interface Historical Provider LAB BLOOD ORDERABLES Final R esult Performing Organization Address [facility]/ZIP Co de Phone Number EXTERNAL LAB * OTTR LAB RESULTS (MANUAL) (11/30/2015 10:11 AM EST) Pathologist [facility] External WBC 13.5 k/uL EXTERNAL LAB External [...] EXTERNAL LAB - 12/02/2015 10:15 AM EST [facility] us Historical Provider LAB BLOOD ORDERABLES Final R esult EXTERNAL LAB documented in this encounter Visit Diagnoses Not on filedocumented in this encounter Care Teams Director Of Radiology Relationship Specialty Start Date End Date Eitan Patel MD [address] [place] [address] PCP - General 03/31/21 documented as of this encounter
--- OUTSIDE RECORDS SUMMARY | 2025-09-20 11:24 | XMS_ITS | Clinical Summary ---
Author Organization [facility] Address [address] [id number] Care Team Providers Care Superintendent Container Terminal Name Role Phone Eitan Patel MD Primary Care Provider + [phone] Allergies No known active allergies Medications glimepiride [...] time each day. 3 Active HYDROcodone-ac etaminophen ([place]) 5-325 MG tablet Take 1 tablet (5 [...] 2004 UKY-Zoster Vaccines (1 of 2) 2004 KBT-RANSW-24 Vaccine (4 - 2025-26 season) 2025 08/30/2021, [...] this topic Medical Devices Implanted Type Area Baby Formula Worker Device Identifier Shelf Expiration Date Model / Serial / Lot Post Perform Reversed Press-Fit Short 7mm - [id number] - [id number] Implanted:Qty: 1 on 10/14/2023 by Alonso Mcleod MD at [facility] [employer] Right: Shoulder [employer] ([facility])-139 168 09/04/2028 [id number] / [id number] / Glenosphere Perform Reversed Standard 36mm - [id number] - [id number] Implanted:Qty: 1 on 10/14/2023 by Alonso Mcleod MD at [facility] [employer] Right: Shoulder [employer] ([employer])-139 168 07/18/2028 XWG130 / [id number] / Baseplate Perform Reversed Lateral Pls3/25mm - [id number] - [id number] Implanted:Qty: 1 on 10/14/2023 by Alonso Mcleod MD at [facility] Plate Right: Shoulder [employer] ([facility])-139 168 09/07/2028 HAM347 / [id number] / Stem Humeral Perfrom Sz 2 Plus - [id number] - [id number] Implanted:Qty: 1 on 10/14/2023 by Alonso Mcleod MD at [facility] Stem Right: Shoulder [employer] ([facility]139 168 01/18/2028 [id number] / [id number] / Cement Palacos W/Gent - [id number] Implanted:10/14 by Alonso Mcleod MD at [facility] (Quantity not on file) [employer]-[id number] / / Cement Palacos W/Gent - [id number] Implanted:10/14 by Alonso Mcleod MD at [facility] (Quantity not on file) [employer]-[id number] / / Insert Perform Rvrsd Sz1/2 36mm/Pls 0mm Ret - [id number] - [id number] Implanted:Qty: 1 on 10/14/2023 by Alonso Mcleod MD at [facility] Right: Shoulder [employer] ([facility]139 168 06/10/2028 [id number] / [id number] / Screw Perform Reversed Peripheral 5x18mm - [id number] Implanted:Qty: 1 on 10/14/2023 by Alonso Mcleod MD at [facility] Right: Shoulder [employer] ([facility]139 168 10/14/2024 [id number] / / Screw Perform Reversed Peripheral 5x30mm - [id number] Implanted:Qty: 1 on 10/14/2023 by Alonso Mcleod MD at [facility] Right: Shoulder [employer] ([facility]139 168 10/14/2023 [id number] / / Screw Perform Reversed Peripheral 5x34mm - [id number] Implanted:Qty: 1 on 10/14/2023 by Alonso Mcleod MD at [facility] Right: Shoulder [employer] ([facility]139 168 10/14/2023 [id number] / / Insurance MEDICARE [facility] Care Teams Superintendent Container Terminal Relationship Specialty Start Date End Date Eitan Patel MD [address] [place] [address] PCP - General 03/31/21
--- OUTSIDE RECORDS SUMMARY | 2025-09-20 11:24 | XMS_ITS | Clinical Summary ---
Author Organization [facility] Address [address] [place] [address] Phone Care Team Providers Care Executive Marketing Assistant Name Role Phone Sumanth Juarez Primary Care [...] age to complete this topic Care Teams Executive Marketing Assistant Relationship Specialty Start Date End Date Sumanth Juarez [address] [facility] [address] [place] [address] PCP - General Internal Medicine-Adolescent Medicine 09/02/12
--- OUTSIDE RECORDS SUMMARY | 2025-09-20 11:24 | XMS_ITS | Encounter Summary ---
Author Organization Healthcare Address [address] [place] [address] Care Team Providers Care Email Marketing Coordinator Name Role Phone Eitan Patel MD Primary Care Provider + [phone] Encounter Details Date Type Department Care Team (Late st Contact Info) Description 03/05/2023 Orders Only External Location [address] [place] [address] Pam Whatley, CARDIOLOGY MANAGER [address] [place], [place] [address] Social History Tobacco Use Types Packs/Day Years [...] 9:57 AM EDT us Pam S Chacorta CARDIOLOGY MANAGER IMG XR PROCEDURES Final Resul t documented in this encounter Visit Diagnoses Not on filedocumented in this encounter Care Teams Email Marketing Coordinator Relationship Specialty Start Date End Date Eitan Patel MD [address] [place] [address] PCP - General 03/31/21 documented as of this encounter
--- OUTSIDE RECORDS SUMMARY | 2025-09-20 11:24 | XMS_ITS | Encounter Summary ---
Author Organization Healthcare Address [address] [place] [address] Care Team Providers Care Systems Operator Name Role Phone Eitan Patel MD Primary Care Provider [phone] Encounter Details Date Type Department Care Team (Late st Contact Info) Description 03/12/2023 Orders Only External Location [address] [place] [address] Pam Whatley, REAL ESTATE REPRESENTATIVE [address] [place] [address] Social History Tobacco Use Types [...] 03/12/2023 4:53 PM EDT us Pam Whatley REAL ESTATE REPRESENTATIVE IMG MRI PROCEDURES Final Resu lt documented in this encounter Visit Diagnoses Not on filedocumented in this encounter Care Teams Systems Operator Relationship Specialty Start Date End Date Eitan Patel MD [address] [place] [address] PCP - General 03/31/21 documented as of this encounter
--- OUTSIDE RECORDS SUMMARY | 2025-09-20 11:24 | XMS_ITS | Data Portability ---
Author Organization [facility] CHERY Nguyen NEWHALL CLOSED Address [address] [facility] [address] [place] [address] Care Team Providers Care Java Application Developer Name Role Phone BRANDI BUNCH Disintegrator Assessment No assessment recorded. Plan of Treatment [...] By Organization Details Last Modified Time 07/24/2017 [id number] presbyopia: care instructions SAILAJA Not available 07/27/2017 21:39:32 astigmatism: car e instructions SAILAJA Not available 07/27/2017 21:41:38 nearsightedness (myopia): care instructions SAILAJA Not available 07/27/2017 21:41:40 type 2 diabetes: care instructions SAILAJA Not available 07/27/2017 21:43:00 MR with +2.50 NL per request dkielar Not available 07/24/2017 14:05:07 recheck 1 yr dkielar Not available 04/2017 14:05:11 07/25/2018 [id number] presbyopia: care instructions dkielar Not available 07/25/2018 [...] Address Organization Details Recorded Time Diabetes mellitus 23497339 [facility] 13:[facility]20 Hypertensive disorder 97315232 Active 2016 [facility] 13:32:28 Type 2 diabetes mellitus without complication 670482996 Active 2016 BRANDI BUNCH MD [address] [place] [address], [phone], [facility] 7 14:04:53 Myopia 56266115 Active 2016 BRANDI BUNCH MD [address] [place] [address], [phone], [facility] 7 14:04:53 Regular astigmatism 28584440 Active 2016 BRANDI BUNCH MD [address] [place] [address], [phone], [facility] 7 14:04:54 Presbyopia 14416188 Active 2016 BRANDI BUNCH MD [address] [place] [address], [phone], [facility] 7 14:04:55 Posterior vitreous detachment 157306768 Active 2017 BRANDI BUNCH MD [address] [place] [address], [phone], [facility] 8 09:52:14 Problem Notes None recorded. Procedures Surgical History Date Name Laterality Status Provider Name and Address Organization Details Recorded Time Refraction completed BRANDI BUNCH MD [address] [place] [address], [phone], [facility] 07/24/2017 14:00:59 Appendectomy completed Kasey Alaniz [facility] 07/24/2017 13:34:27 Imaging Results None recorded. Procedure [...] Time Tobacco Smoking Status Never Smoker Kasey Corbin [facility] 07/24/2017 13:33:36 What Was The Date Of [...] Diagnosis SNOMED-CT Code Diagnosis ICD10 Code Diagnosis IMO Codes Diagnosis Note [id number] BRANDI BUNCH MD OPHTHALMO LOGY [address] [place] [phone] 07/24/2017 13:05:01 07/26/2017 17:07:11 Type 2 diabetes mellitus without complication 405137431 E11.9 no retinopath y seen ou Myopia 85037859 H52.13 Regular astigmatism 6890 5002 H52.223 Presbyopia 86646296 H52. 4 [id number] BRANDI BUNCH MD OPHTHALMO LOGY [address] [place] [phone] 07/25/2018 08:45:11 07/28/2018 08:42:43 Type 2 diabetes mellitus without complication 277246452 E11.9 no retinopath y seen ou Posterior vitreous detachment 742980878 H43.813 Myopia 30804198 H52.13 Regular astigmatism 6890 5002 H52.223 Presbyopia 09252829 H52. 4 Health Concerns Section Related Observation LastModified by Organization Detai ls LastModified Time None Recorded Concern Status LastModified by Organization Details LastModified Time None Recorded Advance Directives Directive None Recorded Payers Insurance Date Sequence Insurance Name Policy Number Policy Allen Covered Member ID Allen Member ID Guarantor Name 10/12/2020 1 [place] [id number] Ashlyn gN [id number] Ashlyn Ng Notes Date Note Type [...] months agodx'd 3-5 yrs BRANDI BUNCH MD [address] [place] [address], [phone], [facility] 07/24/2017 14:09:06 07/25/2018 text/html [id number] returns for yearly DM eye exam Pt says she has trouble focusing in dist after doing close work 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 Feels like a film over her eyes at times. Eyes are very dry, doesnt use any drops. gtts:none pt does no check BG levels, a1c 6.9,type 2 DM x 4+yrs., Dr. Chiquita BUNCH MD [address] [place] [address], [phone], [facility] 07/25/2018 09:53:31 OBGyn Episode No OBEpisode recorded.
[2025-09-20 13:54] LABS: Hemoglobin A1C 7.0 % (4.0-6.0)
== END 2025-09-20 23:59 | disposition home or self-care (01) ==
LOC: LAB 11:22
PROVIDERS: PCP Internal Medicine Adolescent Medicine; Visit Provider Internal Medicine Adolescent Medicine
DX: E11.9 Type 2 diabetes mellitus without complications (principal)
CPT/HCPCS: 36415; 83036